=== PATIENT | male | born 1960 | race African-American/Black ===

== ENCOUNTER 2022-08-15 09:26 | Inpatient (IN) | payer MEDICARE, MEDICAID ==
[2022-08-15] VITALS (9 sets, daily range): BP systolic 105–159; BP diastolic 68–96
[~2022-08-15] VITALS: Ht 177.8 cm; Wt 77.0 kg
[2022-08-15] MEDS ORDERED: ALBUTEROL SULFATE 2.5 MG/0.5 ML NEB SOLUTION NEB ONE (09:28)
[2022-08-15] MEDS ORDERED: LIDOCAINE 4% 50 ML SOLUTION TP ONE (09:28)
[2022-08-15] MEDS ORDERED: LIDOCAINE 2% 11 ML JELLY TP ONE (09:28)
[2022-08-15] MEDS ORDERED: SUCCINYLCHOLINE CHLORIDE 20 MG/ML 10 ML VIAL ONE (09:29)
[2022-08-15] MEDS ORDERED: MIDAZOLAM HCL 2 MG/2 ML VIAL ONE (09:31)
[2022-08-15] MEDS ORDERED: SUCCINYLCHOLINE CHLORIDE 20 MG/ML 10 ML VIAL IVP ONE (09:45)
[2022-08-15] MEDS ORDERED: ETOMIDATE 2 MG/ML 10 ML VIAL IVP ONE (09:45)
[2022-08-15] MEDS ORDERED: VECURONIUM BROMIDE 10 MG/VIAL IVP ONE (09:45)
[2022-08-15] MEDS ORDERED: MIDAZOLAM HCL 2 MG/2 ML VIAL IVP ONE (09:45)
[2022-08-15] MEDS ORDERED: IOHEXOL 350 MG/ML 100 ML VIAL ONE (09:46)
[2022-08-15] MEDS ORDERED: SODIUM CHLORIDE 0.9% 100 ML ONE (09:47)
[2022-08-15] MEDS ORDERED: PROPOFOL 1000 MG/ISO-OSM 100 ML IV PRN (10:15)
[2022-08-15 10:25] LABS: BASOPHILS % (AUTO) 0.9 % (0.0-2.0); EOSINOPHILS % (AUTO) 4.5 % (1.0-6.0); HEMATOCRIT 36.5 % (41-53); HEMOGLOBIN 11.6 g/dL (13.5-17.5); LYMPHOCYTES # (AUTO) 1.4 K/uL (1.0-4.8); LYMPHOCYTES % (AUTO) 16.5 % (22.0-44.0); MEAN CORPUSCULAR HEMOGLOBIN 29.5 pg (26.0-34.0); MEAN CORPUSCULAR HGB CONC 31.9 G/dL (31.0-37.0); MEAN CORPUSCULAR VOLUME 92 fL (80-100); MONOCYTES # (AUTO) 0.7 K/uL (0.1-1.0); MONOCYTES % (AUTO) 8.4 % (2.0-9.0); NEUTROPHILS % (AUTO) 69.7 % (40.0-70.0); PLATELET COUNT (AUTO) 523 K/uL (150-450); RED BLOOD CELL COUNT(AUTO) 3.95 MIL/uL (4.50-5.90)
[2022-08-15 10:40] LABS: ALBUMIN 3.1 g/dL (3.4-5.0); BILIRUBIN,TOTAL 0.4 mg/dL (0.1-1.0); CALCIUM, TOTAL 9.2 mg/dL (8.8-10.5); CREATININE 9.98 mg/dL (0.60-1.30); TOTAL PROTEIN, SERUM 7.8 g/dL (6.4-8.2)
[2022-08-15 10:55] LABS: POTASSIUM 6.8 mmol/L (3.5-5.1)
[2022-08-15 11:31] LABS: PROTHROMBIN TIME 62.9 SEC (9.4-11.6)
[2022-08-15 11:41] LABS: INR 6.4 (0.9-1.1)
[2022-08-15 12:30] LABS: ABG BASE EXCESS -3.3 mmol/L (-2.0-3.0); ABG CARBOXYHEMOGLOBIN 0.1 % (0.0-1.5); ABG HCO3 22.3 mmol/L (22.0-26.0); ABG METHEMOGLOBIN 0.2 % (0.0-1.5); ABG OXYGEN CONTENT 21.8 mL/dL (15.0-23.0); ABG OXYGEN SATURATION 99.1 % (95.0-98.0); ABG OXYHEMOGLOBIN 98.8 % (94.0-100.0); ABG PCO2 35 mmHg (35-45); ABG PH 7.409 (7.35-7.450); ABG TOTAL HEMOGLOBIN 15.4 G/dL (12.0-18.0); PO2, ARTERIAL BG 188.8 mmHg (79.0-87.0); SITE, BLOOD GAS RT RADIAL; SOURCE, BLOOD GAS ARTERIAL; TEMPERATURE, FAHRENHEIT, BG 96.3 FAHREN (96.0-98.6)
[2022-08-15 12:31] LABS: O2 DEVICE,BLOOD GAS VENTILATOR (ROOM AIR); PEEP,BG 5 cm H2O; SPONTANEOUS VT, BG 458 ml; VT, ABG 450 ml
[2022-08-15 12:36] LABS: AMPHET/METH SCREEN,URINE NEGATIVE (NEGATIVE); BARBITURATE SCREEN, URINE NEGATIVE (NEGATIVE); BENZODIAZEPINES SCREEN,URINE NEGATIVE (NEGATIVE); CANNABINOID SCREEN,URINE NEGATIVE (NEGATIVE); COCAINE SCREEN,URINE NEGATIVE (NEGATIVE); METHADONE SCREEN, URINE NEGATIVE (NEGATIVE); OPIATE SCREEN,URINE NEGATIVE (NEGATIVE); PHENCYCLIDINE SCREEN,URINE NEGATIVE (NEGATIVE)
[2022-08-15 12:37] LABS: APPEARANCE,URINE HAZY (CLEAR); BILIRUBIN,URINE NEGATIVE (NEGATIVE); GLUCOSE, URINE (UA) NEGATIVE (NEGATIVE); KETONES,URINE NEGATIVE (NEGATIVE); LEUKOCYTE ESTERASE ,URINE MODERATE (NEGATIVE); NITRATE,URINE NEGATIVE (NEGATIVE); OCCULT BLOOD,URINE LARGE (NEGATIVE); PH,URINE 5.5 (5.0-8.0); PROTEIN,URINE 30-70 mg/dL (NEGATIVE); SPECIFIC GRAVITIY, URINE 1.018 (1.003-1.030); UROBILINOGEN,URINE <=1.0 mg/dL (<=1.0)
[2022-08-15 13:38] LABS: BACTERIA,URINE None Seen /HPF (None Seen); RBC,URINE 26-50 /HPF (0-2); SQUAMOUS EPITHELIAL CELL,UR Few /LPF (None Seen)
[2022-08-15] MEDS ORDERED: INSULIN REGULAR, HUMAN 100 UNITS/ML IVP ONE (14:00)
[2022-08-15] MEDS ORDERED: SODIUM BICARBONATE [ADULT] 8.4% 50 MEQ/50 ML SYRINGE IVP ONE (14:00)
[2022-08-15] MEDS ORDERED: SODIUM CHLORIDE 0.9% 1,000 ML IV ONE (14:00)
[2022-08-15] MEDS ORDERED: CALCIUM GLUCONATE 0.465 MEQ/ML 10 ML VIAL IVP ONE (14:00)
[2022-08-15] MEDS ORDERED: DEXTROSE 50%-WATER 25 GM/50 ML SYRINGE IVP ONE (14:00)
[2022-08-15] MEDS: SODIUM CHLORIDE 0.9% 1,000 ML IV SCH ×2 (14:52→15:51)
[2022-08-15 15:06] LABS: GLUCOSE,POINT OF CARE 119 MG/DL (70-110)
[2022-08-15] MEDS: FentaNYL CIT 1000MCG/0.9% NACL 100 ML IV PRN (15:22)
[2022-08-15] MEDS ORDERED: BISACODYL 10 MG RECTAL RECTAL SUPPOSITORY PR PRN (18:00)
[2022-08-15] MEDS ORDERED: CefTRIAXone 1 GM/DEXTROSE 50 ML IV SCH (18:00)
[2022-08-15] MEDS ORDERED: ONDANSETRON HCL 4 MG/2 ML VIAL IVP PRN (18:00)
[2022-08-15 18:03] LABS: CALCIUM, TOTAL 9.7 mg/dL (8.8-10.5); CREATININE 8.29 mg/dL (0.60-1.30); POTASSIUM 4.8 mmol/L (3.5-5.1)
[2022-08-15 18:09] LABS: ALBUMIN 3.3 g/dL (3.4-5.0); BILIRUBIN,TOTAL 0.5 mg/dL (0.1-1.0)
[2022-08-15 18:10] LABS: INR 2.5 (0.9-1.1); PROTHROMBIN TIME 25.8 SEC (9.4-11.6)
[2022-08-15] MEDS ORDERED: SODIUM CHLORIDE 0.45% 1,000 ML IV SCH (18:30)
[2022-08-15] MEDS: SODIUM ZIRCONIUM CYCLOSILICATE 5 GM POWDER PACKET NG SCH (21:06)
[2022-08-16] VITALS (13 sets, daily range): BP systolic 101–157; BP diastolic 51–91
[2022-08-16] MEDS ORDERED: METOPROLOL TARTRATE 5 MG/5 ML VIAL IVP ONE
[2022-08-16] MEDS ORDERED: METOPROLOL TARTRATE 5 MG/5 ML VIAL ONE (00:07)
[2022-08-16] MEDS ORDERED: PROPOFOL 1000 MG/ISO-OSM 100 ML IV PRN (02:00)
[2022-08-16] MEDS: PROPOFOL 1000 MG/ISO-OSM 100 ML IV PRN (02:00)
[2022-08-16] MEDS ORDERED: ACETAMINOPHEN 650 MG/ISO-OSM 65 ML IV ONE (05:30)
[2022-08-16 08:18] LABS: BASOPHILS % (AUTO) 0.7 % (0.0-2.0); EOSINOPHILS % (AUTO) 0.7 % (1.0-6.0); HEMATOCRIT 37.6 % (41-53); HEMOGLOBIN 11.8 g/dL (13.5-17.5); LYMPHOCYTES # (AUTO) 1.1 K/uL (1.0-4.8); LYMPHOCYTES % (AUTO) 5.7 % (22.0-44.0); MEAN CORPUSCULAR HEMOGLOBIN 28.6 pg (26.0-34.0); MEAN CORPUSCULAR HGB CONC 31.3 G/dL (31.0-37.0); MEAN CORPUSCULAR VOLUME 91 fL (80-100); MONOCYTES # (AUTO) 1.3 K/uL (0.1-1.0); MONOCYTES % (AUTO) 6.4 % (2.0-9.0); NEUTROPHILS # (AUTO) 16.9 K/uL (1.8-7.7); PLATELET COUNT (AUTO) 596 K/uL (150-450); RED BLOOD CELL COUNT(AUTO) 4.12 MIL/uL (4.50-5.90); RED CELL DISTRIBUTION WIDTH 15.8 % (11.5-14.5)
[2022-08-16 08:30] LABS: NEUTROPHILS % (AUTO) 86.5 % (40.0-70.0)
[2022-08-16 08:39] LABS: INR 3.4 (0.9-1.1); PROTHROMBIN TIME 34.3 SEC (9.4-11.6)
[2022-08-16] MEDS: PANTOPRAZOLE SODIUM 40 MG/VIAL IVP SCH (08:46)
[2022-08-16] MEDS: SODIUM ZIRCONIUM CYCLOSILICATE 5 GM POWDER PACKET NG SCH ×2 (08:46→15:59)
[2022-08-16 08:50] LABS: CREATININE 6.91 mg/dL (0.60-1.30); MAGNESIUM 2.9 mg/dL (1.80-2.40); POTASSIUM 5.5 mmol/L (3.5-5.1)
[2022-08-16 09:34] LABS: ABG A-A DIFF O2 537.4 mmHg (10-20.0); ABG HCO3 22.5 mmol/L (22.0-26.0); ABG METHEMOGLOBIN 0.3 % (0.0-1.5); ABG OXYGEN CONTENT 16.4 mL/dL (15.0-23.0); ABG OXYGEN SATURATION 93.2 % (95.0-98.0); ABG OXYHEMOGLOBIN 92.9 % (94.0-100.0); ABG PCO2 34 mmHg (35-45); ABG PH 7.422 (7.35-7.450); ABG TOTAL HEMOGLOBIN 12.5 G/dL (12.0-18.0); O2 DEVICE,BLOOD GAS VENTILATOR (ROOM AIR); PO2, ARTERIAL BG 69.3 mmHg (79.0-87.0); SITE, BLOOD GAS RT RADIAL; SOURCE, BLOOD GAS ARTERIAL
[2022-08-16 09:35] LABS: PEEP,BG 5 cm H2O; SPONTANEOUS VT, BG 459 ml; VT, ABG 450 ml
[2022-08-16] MEDS: DEXTROSE 5%-WATER 1,000 ML IV SCH (10:21)
[2022-08-16 10:37] LABS: LACTIC ACID 2.2 mmol/L (0.4-2.0)
[2022-08-16] MEDS: CefTRIAXone SODIUM 2 GM in DEXTROSE 5%-WATER 50 ML IV SCH (11:28)
[2022-08-16] MEDS: DOXYCYCLINE HYCLATE 100 MG in DEXTROSE 5%-WATER 100 ML IV SCH (11:28)
[2022-08-16 12:33] LABS: COVID AG,FIA SOURCE NASAL SWAB
[2022-08-16] MEDS ORDERED: AMIODARONE HCL 150 MG in DEXTROSE 5%-WATER 97 ML IV ONE (12:50)
[2022-08-16 12:51] LABS: GLUCOSE,POINT OF CARE 163 MG/DL (70-110)
[2022-08-16] MEDS ORDERED: AMIODARONE HCL 360 MG in DEXTROSE 5%-WATER 242.8 ML IV ONE (13:00)
[2022-08-16 13:05] LABS: INFLUENZA TYPE A NEGATIVE FOR TYPE A (NEGATIVE); INFLUENZA TYPE B NEGATIVE FOR TYPE B (NEGATIVE)
[2022-08-16 15:24] LABS: CALCIUM, TOTAL 8.8 mg/dL (8.8-10.5); CREATININE 6.2 mg/dL (0.60-1.30); MAGNESIUM 2.8 mg/dL (1.80-2.40); PHOSPHORUS 4.4 mg/dL (2.5-4.9); POTASSIUM 4.7 mmol/L (3.5-5.1)
[2022-08-16] MEDS ORDERED: AMIODARONE HCL 540 MG in DEXTROSE 5%-WATER 239.2 ML IV ONE (19:00)
[2022-08-16 20:47] LABS: ABG BASE EXCESS -7.9 mmol/L (-2.0-3.0); ABG HCO3 18.8 mmol/L (22.0-26.0); ABG METHEMOGLOBIN 0.3 % (0.0-1.5); ABG OXYGEN CONTENT 16.4 mL/dL (15.0-23.0); ABG OXYGEN SATURATION 96.8 % (95.0-98.0); ABG OXYHEMOGLOBIN 96.5 % (94.0-100.0); ABG PCO2 33 mmHg (35-45); ABG PH 7.347 (7.35-7.450); PO2, ARTERIAL BG 92.4 mmHg (79.0-87.0); SOURCE, BLOOD GAS ARTERIAL; TEMPERATURE, FAHRENHEIT, BG 98.3 FAHREN (96.0-98.6)
[2022-08-16 20:52] LABS: ABG A-A DIFF O2 587.9 mmHg (10-20.0); O2 DEVICE,BLOOD GAS VENT (ROOM AIR); SITE, BLOOD GAS RT RADIAL
[2022-08-16 20:53] LABS: PEEP,BG 10 cm H2O; VT, ABG 450 ml
[2022-08-17] VITALS (9 sets, daily range): BP systolic 92–161; BP diastolic 49–83
[2022-08-17] MEDS: DOXYCYCLINE HYCLATE 100 MG in DEXTROSE 5%-WATER 100 ML IV SCH ×2 (00:07→11:18)
[2022-08-17] MEDS: DEXTROSE 5%-WATER 1,000 ML IV SCH ×2 (00:18→14:50)
[2022-08-17] MEDS: PROPOFOL 1000 MG/ISO-OSM 100 ML IV PRN ×3 (01:30→19:41)
[2022-08-17 05:16] LABS: GLUCOSE,POINT OF CARE 159 MG/DL (70-110)
[2022-08-17 05:24] LABS: BASOPHILS % (AUTO) 0.6 % (0.0-2.0); EOSINOPHILS % (AUTO) 0.9 % (1.0-6.0); HEMATOCRIT 32.5 % (41-53); HEMOGLOBIN 10.3 g/dL (13.5-17.5); LYMPHOCYTES # (AUTO) 1.2 K/uL (1.0-4.8); LYMPHOCYTES % (AUTO) 5.3 % (22.0-44.0); MEAN CORPUSCULAR HGB CONC 31.7 G/dL (31.0-37.0); MEAN CORPUSCULAR VOLUME 91 fL (80-100); MONOCYTES # (AUTO) 1.3 K/uL (0.1-1.0); MONOCYTES % (AUTO) 5.4 % (2.0-9.0); NEUTROPHILS # (AUTO) 20.4 K/uL (1.8-7.7); PLATELET COUNT (AUTO) 456 K/uL (150-450); RED BLOOD CELL COUNT(AUTO) 3.55 MIL/uL (4.50-5.90)
[2022-08-17 05:35] LABS: ALBUMIN 2.7 g/dL (3.4-5.0); BILIRUBIN,TOTAL 0.4 mg/dL (0.1-1.0); CALCIUM, TOTAL 8.6 mg/dL (8.8-10.5); CREATININE 5.62 mg/dL (0.60-1.30); POTASSIUM 4.2 mmol/L (3.5-5.1); TOTAL PROTEIN, SERUM 7.3 g/dL (6.4-8.2)
[2022-08-17 05:46] LABS: NEUTROPHILS % (AUTO) 87.8 % (40.0-70.0)
[2022-08-17] MEDS: FentaNYL CIT 1000MCG/0.9% NACL 100 ML IV PRN ×2 (07:56→19:40)
[2022-08-17] MEDS: PANTOPRAZOLE SODIUM 40 MG/VIAL IVP SCH (09:30)
[2022-08-17] MEDS: SODIUM ZIRCONIUM CYCLOSILICATE 5 GM POWDER PACKET NG SCH (09:30)
[2022-08-17] MEDS: CefTRIAXone SODIUM 2 GM in DEXTROSE 5%-WATER 50 ML IV SCH (11:19)
[2022-08-17 12:12] LABS: MAGNESIUM 2.5 mg/dL (1.80-2.40); PHOSPHORUS 4.2 mg/dL (2.5-4.9)
[2022-08-17] MEDS: AMIODARONE HCL 750 MG in DEXTROSE 5%-WATER 485 ML IV SCH (13:08)
[2022-08-17 14:44] LABS: ABG A-A DIFF O2 586.6 mmHg (10-20.0); ABG BASE EXCESS -2.8 mmol/L (-2.0-3.0); ABG CARBOXYHEMOGLOBIN 0.3 % (0.0-1.5); ABG HCO3 22.5 mmol/L (22.0-26.0); ABG METHEMOGLOBIN 0.3 % (0.0-1.5); ABG OXYGEN CONTENT 13.7 mL/dL (15.0-23.0); ABG OXYGEN SATURATION 96.5 % (95.0-98.0); ABG OXYHEMOGLOBIN 95.9 % (94.0-100.0); ABG PCO2 36 mmHg (35-45); ABG PH 7.405 (7.35-7.450); ABG TOTAL HEMOGLOBIN 10.1 G/dL (12.0-18.0); O2 DEVICE,BLOOD GAS VENTILATOR (ROOM AIR); PEEP,BG 10 cm H2O; PO2, ARTERIAL BG 88.6 mmHg (79.0-87.0); SITE, BLOOD GAS RT RADIAL; SOURCE, BLOOD GAS ARTERIAL; VT, ABG 450 ml
[2022-08-18] VITALS (11 sets, daily range): BP systolic 94–116; BP diastolic 51–74
[2022-08-18] MEDS: DOXYCYCLINE HYCLATE 100 MG in DEXTROSE 5%-WATER 100 ML IV SCH ×3 (01:42→22:32)
[2022-08-18] MEDS ORDERED: SODIUM CHLORIDE 0.9% 250 ML IV ONE ×2 (01:45→22:30)
[2022-08-18 05:43] LABS: BASOPHILS % (AUTO) 0.3 % (0.0-2.0); EOSINOPHILS % (AUTO) 4.9 % (1.0-6.0); HEMATOCRIT 24.5 % (41-53); HEMOGLOBIN 7.3 g/dL (13.5-17.5); LYMPHOCYTES # (AUTO) 0.9 K/uL (1.0-4.8); LYMPHOCYTES % (AUTO) 5.6 % (22.0-44.0); MEAN CORPUSCULAR HEMOGLOBIN 29.2 pg (26.0-34.0); MEAN CORPUSCULAR HGB CONC 29.8 G/dL (31.0-37.0); MEAN CORPUSCULAR VOLUME 98 fL (80-100); MONOCYTES % (AUTO) 6.5 % (2.0-9.0); NEUTROPHILS # (AUTO) 13.1 K/uL (1.8-7.7); NEUTROPHILS % (AUTO) 82.7 % (40.0-70.0); PLATELET COUNT (AUTO) 275 K/uL (150-450); RED BLOOD CELL COUNT(AUTO) 2.49 MIL/uL (4.50-5.90); RED CELL DISTRIBUTION WIDTH 17.6 % (11.5-14.5)
[2022-08-18 06:14] LABS: CALCIUM, TOTAL 6.8 mg/dL (8.8-10.5); CREATININE 4.78 mg/dL (0.60-1.30); POTASSIUM 3.4 mmol/L (3.5-5.1)
[2022-08-18] MEDS: DEXTROSE 5%-WATER 1,000 ML IV SCH ×2 (06:37→19:41)
[2022-08-18] MEDS: PANTOPRAZOLE SODIUM 40 MG/VIAL IVP SCH (07:54)
[2022-08-18 09:37] LABS: CALCIUM, TOTAL 8.4 mg/dL (8.8-10.5); CREATININE 5.03 mg/dL (0.60-1.30); POTASSIUM 4.2 mmol/L (3.5-5.1)
[2022-08-18 10:48] LABS: ABG A-A DIFF O2 163.6 mmHg (10-20.0); ABG BASE EXCESS -3.1 mmol/L (-2.0-3.0); ABG CARBOXYHEMOGLOBIN 0.5 % (0.0-1.5); ABG HCO3 22.3 mmol/L (22.0-26.0); ABG METHEMOGLOBIN 0.3 % (0.0-1.5); ABG OXYGEN CONTENT 12.2 mL/dL (15.0-23.0); ABG OXYGEN SATURATION 96.3 % (95.0-98.0); ABG OXYHEMOGLOBIN 95.5 % (94.0-100.0); ABG PCO2 33 mmHg (35-45); ABG PH 7.426 (7.35-7.450); O2 DEVICE,BLOOD GAS VENTILATOR (ROOM AIR); PO2, ARTERIAL BG 83.2 mmHg (79.0-87.0); SITE, BLOOD GAS RT RADIAL; SOURCE, BLOOD GAS ARTERIAL; TEMPERATURE, FAHRENHEIT, BG 99.1 FAHREN (96.0-98.6); VT, ABG 450 ml
[2022-08-18 10:49] LABS: PEEP,BG 5 cm H2O
[2022-08-18] MEDS: CefTRIAXone SODIUM 2 GM in DEXTROSE 5%-WATER 50 ML IV SCH (12:26)
[2022-08-18] MEDS: AMIODARONE HCL 750 MG in DEXTROSE 5%-WATER 485 ML IV SCH (13:00)
[2022-08-18 13:10] LABS: HEMATOCRIT 26.6 % (41-53); HEMOGLOBIN 8.4 g/dL (13.5-17.5)
[2022-08-18] MEDS ORDERED: PHYTONADIONE 10 MG/1 ML AMP SQ ONE (13:45)
[2022-08-18] MEDS ORDERED: SUCCINYLCHOLINE CHLORIDE 20 MG/ML 10 ML VIAL IM ONE (14:47)
[2022-08-18] MEDS ORDERED: ETOMIDATE 2 MG/ML 10 ML VIAL IV ONE (14:47)
[2022-08-18] MEDS ORDERED: VECURONIUM BROMIDE 10 MG/VIAL IV ONE (14:47)
[2022-08-18] MEDS: MetroNIDAZOLE 500 MG TABLET PO SCH (18:40)
[2022-08-18 20:23] LABS: HEMATOCRIT 26.7 % (41-53); HEMOGLOBIN 8.4 g/dL (13.5-17.5)
[2022-08-18] MEDS: FentaNYL CIT 1000MCG/0.9% NACL 100 ML IV PRN (22:32)
[2022-08-19] VITALS (8 sets, daily range): BP systolic 109–152; BP diastolic 61–85
[2022-08-19] MEDS: MetroNIDAZOLE 500 MG TABLET PO SCH ×3 (00:34→16:30)
[2022-08-19] MEDS ORDERED: LORazepam 2 MG/ML VIAL ONE (04:48)
[2022-08-19] MEDS ORDERED: LORazepam 2 MG/ML VIAL IVP ONE (05:00)
[2022-08-19 05:05] LABS: BASOPHILS % (AUTO) 0.3 % (0.0-2.0); EOSINOPHILS % (AUTO) 4.3 % (1.0-6.0); HEMATOCRIT 28.3 % (41-53); HEMOGLOBIN 9.1 g/dL (13.5-17.5); LYMPHOCYTES # (AUTO) 0.9 K/uL (1.0-4.8); LYMPHOCYTES % (AUTO) 6.2 % (22.0-44.0); MEAN CORPUSCULAR HEMOGLOBIN 29.1 pg (26.0-34.0); MEAN CORPUSCULAR HGB CONC 32.1 G/dL (31.0-37.0); MEAN CORPUSCULAR VOLUME 90 fL (80-100); MONOCYTES # (AUTO) 0.8 K/uL (0.1-1.0); MONOCYTES % (AUTO) 5.2 % (2.0-9.0); NEUTROPHILS # (AUTO) 12.6 K/uL (1.8-7.7); PLATELET COUNT (AUTO) 393 K/uL (150-450); RED BLOOD CELL COUNT(AUTO) 3.13 MIL/uL (4.50-5.90); RED CELL DISTRIBUTION WIDTH 15.8 % (11.5-14.5)
[2022-08-19] MEDS: IPRATROPIUM BROMIDE 0.5 MG/2.5 ML NEB SOLUTION NEB PRN (05:05)
[2022-08-19] MEDS: ALBUTEROL SULFATE 2.5 MG/0.5 ML NEB SOLUTION NEB PRN (05:05)
[2022-08-19 05:27] LABS: INR 3.9 (0.9-1.1); PROTHROMBIN TIME 39.2 SEC (9.4-11.6)
[2022-08-19 05:32] LABS: ALBUMIN 2.2 g/dL (3.4-5.0); BILIRUBIN,TOTAL 0.5 mg/dL (0.1-1.0); CALCIUM, TOTAL 8.7 mg/dL (8.8-10.5); CREATININE 3.41 mg/dL (0.60-1.30); POTASSIUM 3.4 mmol/L (3.5-5.1); TOTAL PROTEIN, SERUM 7.1 g/dL (6.4-8.2)
[2022-08-19 05:50] LABS: GLUCOSE,POINT OF CARE 128 MG/DL (70-110)
[2022-08-19] MEDS: PANTOPRAZOLE SODIUM 40 MG/VIAL IVP SCH (08:03)
[2022-08-19 10:00] LABS: INR 3.5 (0.9-1.1); PROTHROMBIN TIME 35.2 SEC (9.4-11.6)
[2022-08-19] MEDS: DOXYCYCLINE HYCLATE 100 MG in DEXTROSE 5%-WATER 100 ML IV SCH ×2 (10:13→21:31)
[2022-08-19] MEDS: DEXTROSE 5%-WATER 1,000 ML IV SCH ×2 (10:13→19:44)
[2022-08-19] MEDS: POTASSIUM CHL 10 MEQ/WATER 50 ML IV SCH ×4 (10:55→14:49)
[2022-08-19] MEDS: CefTRIAXone SODIUM 2 GM in DEXTROSE 5%-WATER 50 ML IV SCH (12:16)
[2022-08-19] MEDS: AMIODARONE HCL 750 MG in DEXTROSE 5%-WATER 485 ML IV SCH (13:34)
[2022-08-19 15:15] LABS: ABG BASE EXCESS -2.7 mmol/L (-2.0-3.0); ABG CARBOXYHEMOGLOBIN 0.3 % (0.0-1.5); ABG HCO3 22.7 mmol/L (22.0-26.0); ABG METHEMOGLOBIN 0.3 % (0.0-1.5); ABG OXYGEN CONTENT 12.6 mL/dL (15.0-23.0); ABG OXYHEMOGLOBIN 95.4 % (94.0-100.0); ABG PCO2 31 mmHg (35-45); ABG PH 7.458 (7.35-7.450); ABG TOTAL HEMOGLOBIN 9.3 G/dL (12.0-18.0); PO2, ARTERIAL BG 77.9 mmHg (79.0-87.0); SOURCE, BLOOD GAS ARTERIAL; TEMPERATURE, FAHRENHEIT, BG 97.8 FAHREN (96.0-98.6)
[2022-08-19 15:16] LABS: ABG A-A DIFF O2 533.3 mmHg (10-20.0); O2 DEVICE,BLOOD GAS VENTILATOR (ROOM AIR); PEEP,BG 10 cm H2O; SITE, BLOOD GAS RT RADIAL; SPONTANEOUS VT, BG 452 ml; VT, ABG 450 ml
[2022-08-19 16:30] LABS: HEMATOCRIT 23.5 % (41-53); HEMOGLOBIN 7.2 g/dL (13.5-17.5)
[2022-08-19 21:18] LABS: HEMATOCRIT 28.2 % (41-53)
[2022-08-20] VITALS (9 sets, daily range): BP systolic 116–147; BP diastolic 65–87
[2022-08-20] MEDS ORDERED: ACETAMINOPHEN 325 MG TABLET PO ONE (02:00)
[2022-08-20] MEDS: MetroNIDAZOLE 500 MG TABLET PO SCH ×3 (02:20→17:00)
[2022-08-20 02:59] LABS: APPEARANCE,URINE TURBID (CLEAR); BILIRUBIN,URINE NEGATIVE (NEGATIVE); GLUCOSE, URINE (UA) NEGATIVE (NEGATIVE); KETONES,URINE NEGATIVE (NEGATIVE); LEUKOCYTE ESTERASE ,URINE MODERATE (NEGATIVE); NITRATE,URINE NEGATIVE (NEGATIVE); OCCULT BLOOD,URINE LARGE (NEGATIVE); PROTEIN,URINE 30-70 mg/dL (NEGATIVE); SPECIFIC GRAVITIY, URINE 1.009 (1.003-1.030); UROBILINOGEN,URINE <=1.0 mg/dL (<=1.0)
[2022-08-20 03:11] LABS: BACTERIA,URINE Few /HPF (None Seen); SQUAMOUS EPITHELIAL CELL,UR None Seen /LPF (None Seen)
[2022-08-20 06:09] LABS: BASOPHILS % (AUTO) 0.6 % (0.0-2.0); EOSINOPHILS % (AUTO) 5.8 % (1.0-6.0); HEMATOCRIT 28.4 % (41-53); LYMPHOCYTES # (AUTO) 0.8 K/uL (1.0-4.8); LYMPHOCYTES % (AUTO) 5.4 % (22.0-44.0); MEAN CORPUSCULAR HEMOGLOBIN 28.6 pg (26.0-34.0); MEAN CORPUSCULAR HGB CONC 31.9 G/dL (31.0-37.0); MEAN CORPUSCULAR VOLUME 90 fL (80-100); MONOCYTES # (AUTO) 1.4 K/uL (0.1-1.0); MONOCYTES % (AUTO) 9.7 % (2.0-9.0); NEUTROPHILS % (AUTO) 78.5 % (40.0-70.0); PLATELET COUNT (AUTO) 407 K/uL (150-450); RED BLOOD CELL COUNT(AUTO) 3.16 MIL/uL (4.50-5.90); RED CELL DISTRIBUTION WIDTH 15.5 % (11.5-14.5)
[2022-08-20 06:23] LABS: ALBUMIN 2.1 g/dL (3.4-5.0); BILIRUBIN,TOTAL 0.4 mg/dL (0.1-1.0); CALCIUM, TOTAL 8.7 mg/dL (8.8-10.5); CREATININE 2.52 mg/dL (0.60-1.30); INR 2.9 (0.9-1.1); POTASSIUM 3.8 mmol/L (3.5-5.1); TOTAL PROTEIN, SERUM 7.3 g/dL (6.4-8.2)
[2022-08-20] MEDS: DEXTROSE 5%-WATER 1,000 ML IV SCH ×2 (07:31→15:44)
[2022-08-20] MEDS: PANTOPRAZOLE SODIUM 40 MG/VIAL IVP SCH (07:54)
[2022-08-20] MEDS: DOXYCYCLINE HYCLATE 100 MG in DEXTROSE 5%-WATER 100 ML IV SCH ×2 (11:03→23:22)
[2022-08-20] MEDS: CefTRIAXone SODIUM 2 GM in DEXTROSE 5%-WATER 50 ML IV SCH (12:24)
[2022-08-20] MEDS: AMIODARONE HCL 750 MG in DEXTROSE 5%-WATER 485 ML IV SCH (13:10)
[2022-08-20 13:32] LABS: HEMATOCRIT 27.8 % (41-53); HEMOGLOBIN 8.9 g/dL (13.5-17.5)
[2022-08-20 16:24] LABS: HEMATOCRIT 30.3 % (41-53); HEMOGLOBIN 9.5 g/dL (13.5-17.5)
[2022-08-20] MEDS: ACETAMINOPHEN 325 MG TABLET PO PRN (17:38)
[2022-08-21] VITALS (16 sets, daily range): BP systolic 94–147; BP diastolic 53–86
[2022-08-21] MEDS: MetroNIDAZOLE 500 MG TABLET PO SCH ×4 (00:14→23:42)
[2022-08-21] MEDS: ACETAMINOPHEN 325 MG TABLET PO PRN ×2 (00:14→20:19)
[2022-08-21 05:53] LABS: BILIRUBIN,TOTAL 0.4 mg/dL (0.1-1.0); CREATININE 2.3 mg/dL (0.60-1.30); POTASSIUM 3.3 mmol/L (3.5-5.1); TOTAL PROTEIN, SERUM 7.2 g/dL (6.4-8.2)
[2022-08-21] MEDS: PANTOPRAZOLE SODIUM 40 MG/VIAL IVP SCH (08:27)
[2022-08-21 09:44] LABS: BASOPHILS % (AUTO) 0.6 % (0.0-2.0); HEMATOCRIT 29.2 % (41-53); HEMOGLOBIN 9.3 g/dL (13.5-17.5); LYMPHOCYTES % (AUTO) 6.7 % (22.0-44.0); MEAN CORPUSCULAR HEMOGLOBIN 28.6 pg (26.0-34.0); MEAN CORPUSCULAR HGB CONC 31.7 G/dL (31.0-37.0); MEAN CORPUSCULAR VOLUME 90 fL (80-100); MONOCYTES # (AUTO) 2.1 K/uL (0.1-1.0); MONOCYTES % (AUTO) 14.6 % (2.0-9.0); NEUTROPHILS # (AUTO) 10.2 K/uL (1.8-7.7); NEUTROPHILS % (AUTO) 72.1 % (40.0-70.0); PLATELET COUNT (AUTO) 329 K/uL (150-450); RED BLOOD CELL COUNT(AUTO) 3.24 MIL/uL (4.50-5.90); RED CELL DISTRIBUTION WIDTH 15.7 % (11.5-14.5)
[2022-08-21 09:50] LABS: INR 1.8 (0.9-1.1); PROTHROMBIN TIME 18.3 SEC (9.4-11.6)
[2022-08-21] MEDS: DEXTROSE 5%-WATER 1,000 ML IV SCH ×2 (11:12→23:42)
[2022-08-21] MEDS: DOXYCYCLINE HYCLATE 100 MG in DEXTROSE 5%-WATER 100 ML IV SCH ×2 (11:13→23:08)
[2022-08-21] MEDS ORDERED: IODIXANOL 320 MG/ML 50 ML VIAL ONE (12:04)
[2022-08-21] MEDS ORDERED: LIDOCAINE/PF 1% 30 ML VIAL ONE (12:04)
[2022-08-21] MEDS ORDERED: SODIUM BICARBONATE 50 MEQ/50 ML VIAL ONE (12:04)
[2022-08-21] MEDS ORDERED: HEPARIN SODIUM 1000 UNITS/NS 1,000 ML ONE (12:07)
[2022-08-21] MEDS ORDERED: IODIXANOL 320 MG/ML 50 ML VIAL IVP ONE (12:45)
[2022-08-21] MEDS ORDERED: LIDOCAINE 1% 30 ML/SOD BICARB 8.4% 4 ML SQ ONE (12:45)
[2022-08-21] MEDS ORDERED: SODIUM CHLORIDE 0.9% 500 ML IV ONE (12:45)
[2022-08-21] MEDS ORDERED: IODIXANOL 320 MG/ML 100 ML VIAL IVP ONE (12:45)
[2022-08-21] MEDS ORDERED: IODIXANOL 320 MG/ML 100 ML VIAL ONE (12:46)
[2022-08-21] MEDS ORDERED: HEPARIN SODIUM 1000 UNITS/NS 1,000 ML IARTER ONE (13:30)
[2022-08-21] MEDS: AMIODARONE HCL 750 MG in DEXTROSE 5%-WATER 485 ML IV SCH (14:06)
[2022-08-21] MEDS: CefTRIAXone SODIUM 2 GM in DEXTROSE 5%-WATER 50 ML IV SCH (14:06)
[2022-08-21] MEDS: POTASSIUM CHL 10 MEQ/WATER 50 ML IV SCH ×4 (15:40→17:32)
[2022-08-21 16:49] LABS: HEMATOCRIT 25.3 % (41-53); HEMOGLOBIN 8.2 g/dL (13.5-17.5)
[2022-08-21] MEDS ORDERED: SODIUM CHLORIDE 0.9% 250 ML IV ONE (20:18)
[2022-08-21 20:51] LABS: HEMOGLOBIN 8.7 g/dL (13.5-17.5)
[2022-08-22] VITALS (12 sets, daily range): BP systolic 91–133; BP diastolic 51–75
[2022-08-22] MEDS: FentaNYL CIT 1000MCG/0.9% NACL 100 ML IV PRN ×2 (04:13→18:05)
[2022-08-22 06:10] LABS: BASOPHILS % (AUTO) 0.6 % (0.0-2.0); HEMATOCRIT 24.9 % (41-53); HEMOGLOBIN 8.1 g/dL (13.5-17.5); LYMPHOCYTES % (AUTO) 8.5 % (22.0-44.0); MEAN CORPUSCULAR HEMOGLOBIN 28.7 pg (26.0-34.0); MEAN CORPUSCULAR HGB CONC 32.4 G/dL (31.0-37.0); MEAN CORPUSCULAR VOLUME 89 fL (80-100); MONOCYTES # (AUTO) 1.5 K/uL (0.1-1.0); MONOCYTES % (AUTO) 12.2 % (2.0-9.0); NEUTROPHILS # (AUTO) 8.8 K/uL (1.8-7.7); NEUTROPHILS % (AUTO) 72.7 % (40.0-70.0); PLATELET COUNT (AUTO) 320 K/uL (150-450); RED CELL DISTRIBUTION WIDTH 15.6 % (11.5-14.5)
[2022-08-22 06:11] LABS: ALBUMIN 1.8 g/dL (3.4-5.0); BILIRUBIN,TOTAL 0.3 mg/dL (0.1-1.0); CALCIUM, TOTAL 8.5 mg/dL (8.8-10.5); CREATININE 2.08 mg/dL (0.60-1.30); PHOSPHORUS 2.8 mg/dL (2.5-4.9); POTASSIUM 3.2 mmol/L (3.5-5.1); TOTAL PROTEIN, SERUM 6.5 g/dL (6.4-8.2)
[2022-08-22] MEDS: POTASSIUM CHL 10 MEQ/WATER 50 ML IV SCH ×4 (08:01→10:57)
[2022-08-22] MEDS: PANTOPRAZOLE SODIUM 40 MG/VIAL IVP SCH (08:01)
[2022-08-22] MEDS: MetroNIDAZOLE 500 MG TABLET PO SCH ×2 (08:01→17:22)
[2022-08-22 08:37] LABS: INR 1.7 (0.9-1.1); PROTHROMBIN TIME 17.3 SEC (9.4-11.6)
[2022-08-22] MEDS: CefTRIAXone SODIUM 2 GM in DEXTROSE 5%-WATER 50 ML IV SCH (11:31)
[2022-08-22] MEDS: DOXYCYCLINE HYCLATE 100 MG in DEXTROSE 5%-WATER 100 ML IV SCH (11:31)
[2022-08-22] MEDS: DEXTROSE 5%-WATER 1,000 ML IV SCH (13:17)
[2022-08-22] MEDS: METOCLOPRAMIDE HCL 5 MG/ML 2 ML VIAL IVP SCH ×2 (17:22→20:37)
[2022-08-22] MEDS: AMIODARONE HCL 200 MG TABLET PO SCH (20:37)
[2022-08-23] VITALS (12 sets, daily range): BP systolic 100–135; BP diastolic 50–77
[2022-08-23] MEDS ORDERED: SODIUM CHLORIDE 0.9% 250 ML IV ONE (00:11)
[2022-08-23] MEDS: DOXYCYCLINE HYCLATE 100 MG in DEXTROSE 5%-WATER 100 ML IV SCH ×2 (00:13→11:04)
[2022-08-23] MEDS: MetroNIDAZOLE 500 MG TABLET PO SCH ×4 (00:13→23:12)
[2022-08-23] MEDS: DEXTROSE 5%-WATER 1,000 ML IV SCH ×2 (02:07→16:27)
[2022-08-23 05:57] LABS: BASOPHILS % (AUTO) 0.8 % (0.0-2.0); EOSINOPHILS % (AUTO) 5.5 % (1.0-6.0); HEMATOCRIT 25.2 % (41-53); HEMOGLOBIN 8.3 g/dL (13.5-17.5); LYMPHOCYTES % (AUTO) 9.1 % (22.0-44.0); MEAN CORPUSCULAR HEMOGLOBIN 29.4 pg (26.0-34.0); MEAN CORPUSCULAR HGB CONC 33.1 G/dL (31.0-37.0); MEAN CORPUSCULAR VOLUME 89 fL (80-100); MONOCYTES % (AUTO) 8.9 % (2.0-9.0); NEUTROPHILS # (AUTO) 8.4 K/uL (1.8-7.7); NEUTROPHILS % (AUTO) 75.7 % (40.0-70.0); PLATELET COUNT (AUTO) 323 K/uL (150-450); RED BLOOD CELL COUNT(AUTO) 2.83 MIL/uL (4.50-5.90); RED CELL DISTRIBUTION WIDTH 15.8 % (11.5-14.5)
[2022-08-23] MEDS: FentaNYL CIT 1000MCG/0.9% NACL 100 ML IV PRN ×2 (06:04→19:45)
[2022-08-23 06:17] LABS: ALBUMIN 1.8 g/dL (3.4-5.0); BILIRUBIN,TOTAL 0.3 mg/dL (0.1-1.0); CALCIUM, TOTAL 8.7 mg/dL (8.8-10.5); CREATININE 2.04 mg/dL (0.60-1.30); MAGNESIUM 1.8 mg/dL (1.80-2.40); PHOSPHORUS 3.2 mg/dL (2.5-4.9); POTASSIUM 3.5 mmol/L (3.5-5.1); TOTAL PROTEIN, SERUM 6.4 g/dL (6.4-8.2)
[2022-08-23] MEDS: METOCLOPRAMIDE HCL 5 MG/ML 2 ML VIAL IVP SCH ×3 (08:17→20:28)
[2022-08-23] MEDS: PANTOPRAZOLE SODIUM 40 MG/VIAL IVP SCH (08:18)
[2022-08-23] MEDS: AMIODARONE HCL 200 MG TABLET PO SCH ×2 (08:18→20:28)
[2022-08-23] MEDS: CefTRIAXone SODIUM 2 GM in DEXTROSE 5%-WATER 50 ML IV SCH (12:04)
[2022-08-23 12:35] LABS: INR 1.7 (0.9-1.1); PROTHROMBIN TIME 17.6 SEC (9.4-11.6)
[2022-08-23] MEDS: POTASSIUM CHL 10 MEQ/WATER 50 ML IV SCH ×2 (13:37→15:08)
[2022-08-23] MEDS ORDERED: PHENYLEPHRINE 200 MG/D5%-WATER 250 ML IV PRN (22:45)
[2022-08-24] VITALS (9 sets, daily range): BP systolic 89–131; BP diastolic 41–85
[2022-08-24] MEDS: PROPOFOL 1000 MG/ISO-OSM 100 ML IV PRN ×2 (03:39→21:00)
[2022-08-24] MEDS ORDERED: SODIUM CHLORIDE 0.9% 250 ML IV ONE (04:47)
[2022-08-24] MEDS: DEXTROSE 5%-WATER 1,000 ML IV SCH ×2 (04:50→23:54)
[2022-08-24 06:14] LABS: BASOPHILS % (AUTO) 0.6 % (0.0-2.0); EOSINOPHILS % (AUTO) 3.7 % (1.0-6.0); HEMATOCRIT 25.2 % (41-53); HEMOGLOBIN 8.1 g/dL (13.5-17.5); LYMPHOCYTES # (AUTO) 1.4 K/uL (1.0-4.8); LYMPHOCYTES % (AUTO) 11.7 % (22.0-44.0); MEAN CORPUSCULAR HEMOGLOBIN 28.9 pg (26.0-34.0); MEAN CORPUSCULAR HGB CONC 32.2 G/dL (31.0-37.0); MEAN CORPUSCULAR VOLUME 90 fL (80-100); MONOCYTES % (AUTO) 8.2 % (2.0-9.0); NEUTROPHILS % (AUTO) 75.8 % (40.0-70.0); PLATELET COUNT (AUTO) 319 K/uL (150-450); RED BLOOD CELL COUNT(AUTO) 2.81 MIL/uL (4.50-5.90); RED CELL DISTRIBUTION WIDTH 15.3 % (11.5-14.5)
[2022-08-24 06:32] LABS: CALCIUM, TOTAL 8.3 mg/dL (8.8-10.5); CREATININE 2.06 mg/dL (0.60-1.30); MAGNESIUM 1.8 mg/dL (1.80-2.40); PHOSPHORUS 3.6 mg/dL (2.5-4.9); POTASSIUM 3.3 mmol/L (3.5-5.1)
[2022-08-24] MEDS: AMIODARONE HCL 200 MG TABLET PO SCH ×2 (08:17→20:58)
[2022-08-24] MEDS: PANTOPRAZOLE SODIUM 40 MG/VIAL IVP SCH (08:17)
[2022-08-24] MEDS: METOCLOPRAMIDE HCL 5 MG/ML 2 ML VIAL IVP SCH ×3 (08:17→20:58)
[2022-08-24] MEDS: MetroNIDAZOLE 500 MG TABLET PO SCH ×2 (08:17→15:33)
[2022-08-24] MEDS: FentaNYL CIT 1000MCG/0.9% NACL 100 ML IV PRN ×2 (08:26→21:01)
[2022-08-24 10:39] LABS: INR 1.7 (0.9-1.1)
[2022-08-24] MEDS: CefTRIAXone SODIUM 2 GM in DEXTROSE 5%-WATER 50 ML IV SCH (11:24)
[2022-08-24] MEDS ORDERED: POTASSIUM CHL 10 MEQ/WATER 50 ML IV ONE (13:30)
[2022-08-24] MEDS: ALBUTEROL SULFATE 2.5 MG/0.5 ML NEB SOLUTION NEB PRN (19:15)
[2022-08-24] MEDS: ACETYLCYSTEINE 10% 100 MG/ML 4 ML NEB SOLUTION NEB SCH (19:15)
[2022-08-24] MEDS: IPRATROPIUM BROMIDE 0.5 MG/2.5 ML NEB SOLUTION NEB PRN (19:15)
[2022-08-25] VITALS: BP 96/52
[2022-08-25] MEDS: MetroNIDAZOLE 500 MG TABLET PO SCH ×4 (00:04→23:21)
[2022-08-25] MEDS: ACETYLCYSTEINE 10% 100 MG/ML 4 ML NEB SOLUTION NEB SCH ×4 (01:35→19:05)
[2022-08-25] MEDS: ALBUTEROL SULFATE 2.5 MG/0.5 ML NEB SOLUTION NEB PRN ×4 (01:35→19:05)
[2022-08-25] MEDS: IPRATROPIUM BROMIDE 0.5 MG/2.5 ML NEB SOLUTION NEB PRN (01:35)
[2022-08-25 04:00] VITALS: BP 106/51
[2022-08-25] MEDS: PROPOFOL 1000 MG/ISO-OSM 100 ML IV PRN (05:08)
[2022-08-25] MEDS ORDERED: SODIUM CHLORIDE 0.9% 250 ML IV ONE ×2 (06:02→23:19)
[2022-08-25 06:58] LABS: CALCIUM, TOTAL 8.7 mg/dL (8.8-10.5); CREATININE 2.26 mg/dL (0.60-1.30); MAGNESIUM 1.9 mg/dL (1.80-2.40); PHOSPHORUS 3.9 mg/dL (2.5-4.9); POTASSIUM 3.4 mmol/L (3.5-5.1)
[2022-08-25 07:28] LABS: BASOPHILS % (AUTO) 0.6 % (0.0-2.0); EOSINOPHILS % (AUTO) 3.2 % (1.0-6.0); HEMATOCRIT 26.4 % (41-53); HEMOGLOBIN 8.4 g/dL (13.5-17.5); LYMPHOCYTES # (AUTO) 1.3 K/uL (1.0-4.8); LYMPHOCYTES % (AUTO) 10.7 % (22.0-44.0); MEAN CORPUSCULAR HEMOGLOBIN 28.6 pg (26.0-34.0); MEAN CORPUSCULAR HGB CONC 31.9 G/dL (31.0-37.0); MEAN CORPUSCULAR VOLUME 90 fL (80-100); MONOCYTES # (AUTO) 0.8 K/uL (0.1-1.0); MONOCYTES % (AUTO) 6.3 % (2.0-9.0); NEUTROPHILS # (AUTO) 9.7 K/uL (1.8-7.7); NEUTROPHILS % (AUTO) 79.2 % (40.0-70.0); PLATELET COUNT (AUTO) 331 K/uL (150-450); RED BLOOD CELL COUNT(AUTO) 2.94 MIL/uL (4.50-5.90); RED CELL DISTRIBUTION WIDTH 15.6 % (11.5-14.5)
[2022-08-25 08:00] VITALS: BP 135/65
[2022-08-25] MEDS: AMIODARONE HCL 200 MG TABLET PO SCH ×2 (08:01→20:50)
[2022-08-25] MEDS: METOCLOPRAMIDE HCL 5 MG/ML 2 ML VIAL IVP SCH (08:01)
[2022-08-25] MEDS: PANTOPRAZOLE SODIUM 40 MG/VIAL IVP SCH (08:02)
[2022-08-25 08:47] LABS: INR 1.6 (0.9-1.1); PROTHROMBIN TIME 16.3 SEC (9.4-11.6)
[2022-08-25] MEDS: FentaNYL CIT 1000MCG/0.9% NACL 100 ML IV PRN ×3 (10:45→23:21)
[2022-08-25] MEDS: CefTRIAXone SODIUM 2 GM in DEXTROSE 5%-WATER 50 ML IV SCH (11:08)
[2022-08-25] MEDS ORDERED: POTASSIUM CHL 10 MEQ/WATER 50 ML IV ONE (11:30)
[2022-08-25 12:00] VITALS: BP 130/80
[2022-08-25 15:06] LABS: S PNEUMO SOURCE Urine; STREP PNEUMONIAE AG URINE Negative (Negative)
[2022-08-25 16:00] VITALS: BP 114/61
[2022-08-25 16:06] LABS: LEGIONELLA PNEUMO AG URINE Negative (Negative)
[2022-08-25] MEDS: DEXTROSE 5%-WATER 1,000 ML IV SCH (19:05)
[2022-08-25 20:00] VITALS: BP 126/71
[2022-08-26] VITALS: BP 130/69
[2022-08-26] MEDS: ALBUTEROL SULFATE 2.5 MG/0.5 ML NEB SOLUTION NEB PRN ×3 (01:20→19:09)
[2022-08-26] MEDS: ACETYLCYSTEINE 10% 100 MG/ML 4 ML NEB SOLUTION NEB SCH ×4 (01:20→19:09)
[2022-08-26 01:40] LABS: C.DIFF GDH ANTIGEN, Stool Negative (Negative); C.DIFF TOXINS A&B, Stool Negative (Negative)
[2022-08-26 04:00] VITALS: BP 134/62
[2022-08-26 05:55] LABS: BASOPHILS % (AUTO) 0.3 % (0.0-2.0); HEMATOCRIT 24.4 % (41-53); HEMOGLOBIN 7.9 g/dL (13.5-17.5); LYMPHOCYTES # (AUTO) 0.8 K/uL (1.0-4.8); LYMPHOCYTES % (AUTO) 5.3 % (22.0-44.0); MEAN CORPUSCULAR HEMOGLOBIN 28.8 pg (26.0-34.0); MEAN CORPUSCULAR HGB CONC 32.6 G/dL (31.0-37.0); MEAN CORPUSCULAR VOLUME 89 fL (80-100); MONOCYTES # (AUTO) 0.8 K/uL (0.1-1.0); MONOCYTES % (AUTO) 5.3 % (2.0-9.0); NEUTROPHILS # (AUTO) 12.3 K/uL (1.8-7.7); PLATELET COUNT (AUTO) 300 K/uL (150-450); RED BLOOD CELL COUNT(AUTO) 2.75 MIL/uL (4.50-5.90); RED CELL DISTRIBUTION WIDTH 15.9 % (11.5-14.5)
[2022-08-26 06:07] LABS: CALCIUM, TOTAL 8.4 mg/dL (8.8-10.5); CREATININE 2.03 mg/dL (0.60-1.30); MAGNESIUM 1.8 mg/dL (1.80-2.40); PHOSPHORUS 4.7 mg/dL (2.5-4.9); POTASSIUM 3.4 mmol/L (3.5-5.1)
[2022-08-26 06:13] LABS: NEUTROPHILS % (AUTO) 87.1 % (40.0-70.0)
[2022-08-26 08:00] VITALS: BP 143/73
[2022-08-26] MEDS: AMIODARONE HCL 200 MG TABLET PO SCH ×2 (08:07→20:26)
[2022-08-26] MEDS: MetroNIDAZOLE 500 MG TABLET PO SCH ×3 (08:07→23:54)
[2022-08-26] MEDS: PANTOPRAZOLE SODIUM 40 MG/VIAL IVP SCH (08:07)
[2022-08-26] MEDS: FentaNYL CIT 1000MCG/0.9% NACL 100 ML IV PRN (08:14)
[2022-08-26] MEDS: POTASSIUM CHL 10 MEQ/WATER 50 ML IV SCH ×2 (09:45→11:26)
[2022-08-26 12:00] VITALS: BP 142/65
[2022-08-26] MEDS: CefTRIAXone SODIUM 2 GM in DEXTROSE 5%-WATER 50 ML IV SCH (12:21)
[2022-08-26 12:51] LABS: ABG BASE EXCESS -5.7 mmol/L (-2.0-3.0); ABG CARBOXYHEMOGLOBIN 0.5 % (0.0-1.5); ABG HCO3 20.5 mmol/L (22.0-26.0); ABG METHEMOGLOBIN 0.3 % (0.0-1.5); ABG OXYGEN CONTENT 16.1 mL/dL (15.0-23.0); ABG OXYGEN SATURATION 96.3 % (95.0-98.0); ABG OXYHEMOGLOBIN 95.5 % (94.0-100.0); ABG PCO2 29 mmHg (35-45); ABG PH 7.423 (7.35-7.450); ABG TOTAL HEMOGLOBIN 11.9 G/dL (12.0-18.0); PO2, ARTERIAL BG 73.4 mmHg (79.0-87.0); SITE, BLOOD GAS RT RADIAL; SOURCE, BLOOD GAS ARTERIAL; TEMPERATURE, FAHRENHEIT, BG 95.6 FAHREN (96.0-98.6)
[2022-08-26 12:52] LABS: ABG A-A DIFF O2 252.1 mmHg (10-20.0); O2 DEVICE,BLOOD GAS VENTILATOR (ROOM AIR); PEEP,BG 5 cm H2O; PRESSURE SUPPORT, BG 8 cm H2O; SPONTANEOUS VT, BG 745 ml; VENT MODE, BG Press. Support Vent. (ROOM AIR)
[2022-08-26 16:00] VITALS: BP 121/68
[2022-08-26] MEDS: DEXTROSE 5%-WATER 1,000 ML IV SCH (16:14)
[2022-08-26 20:00] VITALS: BP 143/72
[2022-08-27] VITALS: BP 124/72
[2022-08-27] MEDS: ALBUTEROL SULFATE 2.5 MG/0.5 ML NEB SOLUTION NEB PRN ×2 (01:11→19:45)
[2022-08-27] MEDS: ACETYLCYSTEINE 10% 100 MG/ML 4 ML NEB SOLUTION NEB SCH ×4 (01:11→19:45)
[2022-08-27] MEDS: FentaNYL CIT 1000MCG/0.9% NACL 100 ML IV PRN ×2 (01:40→12:47)
[2022-08-27 04:00] VITALS: BP 132/73
[2022-08-27 06:15] LABS: BASOPHILS % (AUTO) 0.5 % (0.0-2.0); EOSINOPHILS % (AUTO) 1.8 % (1.0-6.0); HEMATOCRIT 24.7 % (41-53); HEMOGLOBIN 8.1 g/dL (13.5-17.5); LYMPHOCYTES # (AUTO) 0.8 K/uL (1.0-4.8); LYMPHOCYTES % (AUTO) 6.3 % (22.0-44.0); MEAN CORPUSCULAR HEMOGLOBIN 29.1 pg (26.0-34.0); MEAN CORPUSCULAR VOLUME 88 fL (80-100); MONOCYTES # (AUTO) 0.7 K/uL (0.1-1.0); MONOCYTES % (AUTO) 5.4 % (2.0-9.0); PLATELET COUNT (AUTO) 349 K/uL (150-450); RED CELL DISTRIBUTION WIDTH 15.4 % (11.5-14.5)
[2022-08-27 06:29] LABS: CALCIUM, TOTAL 8.6 mg/dL (8.8-10.5); CREATININE 1.76 mg/dL (0.60-1.30); MAGNESIUM 1.9 mg/dL (1.80-2.40); PHOSPHORUS 3.8 mg/dL (2.5-4.9); POTASSIUM 3.7 mmol/L (3.5-5.1)
[2022-08-27 08:00] VITALS: BP 132/78
[2022-08-27] MEDS: AMIODARONE HCL 200 MG TABLET PO SCH ×2 (08:10→22:25)
[2022-08-27] MEDS: MetroNIDAZOLE 500 MG TABLET PO SCH ×2 (08:10→17:04)
[2022-08-27] MEDS: PANTOPRAZOLE SODIUM 40 MG/VIAL IVP SCH (08:10)
[2022-08-27 12:00] VITALS: BP 138/77
[2022-08-27] MEDS: CefTRIAXone SODIUM 2 GM in DEXTROSE 5%-WATER 50 ML IV SCH (12:42)
[2022-08-27 16:00] VITALS: BP 132/78
[2022-08-27] MEDS: DEXTROSE 5%-WATER 1,000 ML IV SCH (17:04)
[2022-08-27] MEDS: IPRATROPIUM BROMIDE 0.5 MG/2.5 ML NEB SOLUTION NEB PRN (19:45)
[2022-08-27 20:00] VITALS: BP 151/78
[2022-08-28] VITALS: BP 144/73
[2022-08-28 01:06] LABS: GLUCOSE,POINT OF CARE 108 MG/DL (70-110)
[2022-08-28] MEDS: FentaNYL CIT 1000MCG/0.9% NACL 100 ML IV PRN ×3 (01:08→21:37)
[2022-08-28] MEDS: MetroNIDAZOLE 500 MG TABLET PO SCH ×2 (01:08→08:38)
[2022-08-28] MEDS: ALBUTEROL SULFATE 2.5 MG/0.5 ML NEB SOLUTION NEB PRN ×4 (01:53→20:06)
[2022-08-28] MEDS: ACETYLCYSTEINE 10% 100 MG/ML 4 ML NEB SOLUTION NEB SCH ×4 (01:53→20:06)
[2022-08-28 04:00] VITALS: BP 155/89
[2022-08-28] MEDS: IPRATROPIUM BROMIDE 0.5 MG/2.5 ML NEB SOLUTION NEB PRN ×2 (07:39→13:12)
[2022-08-28 08:00] VITALS: BP 158/71
[2022-08-28] MEDS: PANTOPRAZOLE SODIUM 40 MG/VIAL IVP SCH (08:38)
[2022-08-28] MEDS: AMIODARONE HCL 200 MG TABLET PO SCH ×2 (08:38→22:52)
[2022-08-28 09:43] LABS: BASOPHILS % (AUTO) 0.6 % (0.0-2.0); HEMATOCRIT 25.7 % (41-53); HEMOGLOBIN 8.5 g/dL (13.5-17.5); LYMPHOCYTES % (AUTO) 9.6 % (22.0-44.0); MEAN CORPUSCULAR HEMOGLOBIN 29.5 pg (26.0-34.0); MEAN CORPUSCULAR HGB CONC 33.2 G/dL (31.0-37.0); MEAN CORPUSCULAR VOLUME 89 fL (80-100); MONOCYTES # (AUTO) 0.9 K/uL (0.1-1.0); MONOCYTES % (AUTO) 8.4 % (2.0-9.0); NEUTROPHILS # (AUTO) 8.3 K/uL (1.8-7.7); NEUTROPHILS % (AUTO) 78.4 % (40.0-70.0); PLATELET COUNT (AUTO) 424 K/uL (150-450); RED BLOOD CELL COUNT(AUTO) 2.89 MIL/uL (4.50-5.90); RED CELL DISTRIBUTION WIDTH 15.8 % (11.5-14.5)
[2022-08-28 10:04] LABS: CALCIUM, TOTAL 8.7 mg/dL (8.8-10.5); CREATININE 1.83 mg/dL (0.60-1.30); POTASSIUM 3.8 mmol/L (3.5-5.1)
[2022-08-28 10:07] LABS: MAGNESIUM 1.9 mg/dL (1.80-2.40); PHOSPHORUS 3.9 mg/dL (2.5-4.9)
[2022-08-28 11:10] LABS: GLUCOSE,POINT OF CARE 93 MG/DL (70-110)
[2022-08-28] MEDS: CefTRIAXone SODIUM 2 GM in DEXTROSE 5%-WATER 50 ML IV SCH (11:45)
[2022-08-28 12:00] VITALS: BP 136/68
[2022-08-28 13:46] LABS: INR 1.5 (0.9-1.1); PROTHROMBIN TIME 15.5 SEC (9.4-11.6)
[2022-08-28 16:00] VITALS: BP 150/86
[2022-08-28] MEDS: ACETAMINOPHEN 325 MG TABLET PO PRN (18:22)
[2022-08-28] MEDS: DEXTROSE 5%-WATER 1,000 ML IV SCH (18:22)
[2022-08-28 20:00] VITALS: BP 146/77
[2022-08-29] VITALS: BP 132/66
[2022-08-29] MEDS: ALBUTEROL SULFATE 2.5 MG/0.5 ML NEB SOLUTION NEB PRN ×4 (01:38→19:39)
[2022-08-29] MEDS: ACETYLCYSTEINE 10% 100 MG/ML 4 ML NEB SOLUTION NEB SCH ×4 (01:38→19:39)
[2022-08-29 04:00] VITALS: BP 159/75
[2022-08-29 06:00] LABS: BASOPHILS % (AUTO) 0.8 % (0.0-2.0); EOSINOPHILS % (AUTO) 1.8 % (1.0-6.0); HEMATOCRIT 25.9 % (41-53); HEMOGLOBIN 8.7 g/dL (13.5-17.5); LYMPHOCYTES # (AUTO) 1.1 K/uL (1.0-4.8); LYMPHOCYTES % (AUTO) 10.6 % (22.0-44.0); MEAN CORPUSCULAR HEMOGLOBIN 29.9 pg (26.0-34.0); MEAN CORPUSCULAR HGB CONC 33.7 G/dL (31.0-37.0); MEAN CORPUSCULAR VOLUME 89 fL (80-100); MONOCYTES % (AUTO) 9.3 % (2.0-9.0); NEUTROPHILS # (AUTO) 8.1 K/uL (1.8-7.7); NEUTROPHILS % (AUTO) 77.5 % (40.0-70.0); PLATELET COUNT (AUTO) 411 K/uL (150-450); RED BLOOD CELL COUNT(AUTO) 2.92 MIL/uL (4.50-5.90); RED CELL DISTRIBUTION WIDTH 15.8 % (11.5-14.5)
[2022-08-29 06:16] LABS: ALBUMIN 1.9 g/dL (3.4-5.0); BILIRUBIN,TOTAL 0.3 mg/dL (0.1-1.0); CALCIUM, TOTAL 8.8 mg/dL (8.8-10.5); CREATININE 1.88 mg/dL (0.60-1.30); PHOSPHORUS 4.2 mg/dL (2.5-4.9); POTASSIUM 4.3 mmol/L (3.5-5.1); TOTAL PROTEIN, SERUM 6.7 g/dL (6.4-8.2)
[2022-08-29] MEDS: IPRATROPIUM BROMIDE 0.5 MG/2.5 ML NEB SOLUTION NEB PRN ×2 (07:58→13:31)
[2022-08-29 08:00] VITALS: BP 126/64
[2022-08-29] MEDS: AMIODARONE HCL 200 MG TABLET PO SCH ×2 (09:06→21:18)
[2022-08-29] MEDS: PANTOPRAZOLE SODIUM 40 MG/VIAL IVP SCH (09:08)
[2022-08-29] MEDS: FentaNYL CIT 1000MCG/0.9% NACL 100 ML IV PRN ×3 (09:13→20:54)
[2022-08-29] MEDS ORDERED: ROCURONIUM BROMIDE 10 MG/ML 5 ML VIAL IVP ONE (10:00)
[2022-08-29 12:00] VITALS: BP 182/93
[2022-08-29] MEDS: CefTRIAXone SODIUM 2 GM in DEXTROSE 5%-WATER 50 ML IV SCH (12:26)
[2022-08-29 16:00] VITALS: BP 155/68
[2022-08-29] MEDS: DEXTROSE 5%-WATER 1,000 ML IV SCH (17:31)
[2022-08-29 20:00] VITALS: BP 143/81
[2022-08-29] MEDS: PROPOFOL 1000 MG/ISO-OSM 100 ML IV PRN (21:10)
[2022-08-30] VITALS: BP 161/72
[2022-08-30] MEDS: FentaNYL CIT 1000MCG/0.9% NACL 100 ML IV PRN ×5 (01:58→23:52)
[2022-08-30] MEDS: ALBUTEROL SULFATE 2.5 MG/0.5 ML NEB SOLUTION NEB PRN ×4 (02:08→19:52)
[2022-08-30] MEDS: ACETYLCYSTEINE 10% 100 MG/ML 4 ML NEB SOLUTION NEB SCH ×4 (02:09→19:52)
[2022-08-30 04:00] VITALS: BP 177/66
[2022-08-30 06:04] LABS: CALCIUM, TOTAL 8.9 mg/dL (8.8-10.5); CREATININE 1.81 mg/dL (0.60-1.30); POTASSIUM 3.9 mmol/L (3.5-5.1)
[2022-08-30 06:05] LABS: BASOPHILS % (AUTO) 0.7 % (0.0-2.0); EOSINOPHILS % (AUTO) 1.5 % (1.0-6.0); HEMATOCRIT 25.3 % (41-53); HEMOGLOBIN 8.3 g/dL (13.5-17.5); LYMPHOCYTES # (AUTO) 1.1 K/uL (1.0-4.8); MEAN CORPUSCULAR HEMOGLOBIN 29.1 pg (26.0-34.0); MEAN CORPUSCULAR HGB CONC 32.9 G/dL (31.0-37.0); MEAN CORPUSCULAR VOLUME 89 fL (80-100); MONOCYTES # (AUTO) 0.9 K/uL (0.1-1.0); MONOCYTES % (AUTO) 10.1 % (2.0-9.0); NEUTROPHILS % (AUTO) 75.7 % (40.0-70.0); PLATELET COUNT (AUTO) 405 K/uL (150-450); RED BLOOD CELL COUNT(AUTO) 2.86 MIL/uL (4.50-5.90); RED CELL DISTRIBUTION WIDTH 15.9 % (11.5-14.5)
[2022-08-30 08:00] VITALS: BP 136/71
[2022-08-30] MEDS: IPRATROPIUM BROMIDE 0.5 MG/2.5 ML NEB SOLUTION NEB PRN ×2 (08:18→13:41)
[2022-08-30] MEDS: PANTOPRAZOLE SODIUM 40 MG/VIAL IVP SCH (09:02)
[2022-08-30] MEDS: AMIODARONE HCL 200 MG TABLET PO SCH ×2 (09:02→20:43)
[2022-08-30] MEDS: PROPOFOL 1000 MG/ISO-OSM 100 ML IV PRN ×3 (09:10→23:57)
[2022-08-30 12:00] VITALS: BP 144/61
[2022-08-30 16:00] VITALS: BP 130/64
[2022-08-30] MEDS: DEXTROSE 5%-WATER 1,000 ML IV SCH (17:23)
[2022-08-30 20:00] VITALS: BP 156/79
[2022-08-31] VITALS: BP 127/67
[2022-08-31] MEDS: ALBUTEROL SULFATE 2.5 MG/0.5 ML NEB SOLUTION NEB PRN ×4 (01:42→20:22)
[2022-08-31] MEDS: ACETYLCYSTEINE 10% 100 MG/ML 4 ML NEB SOLUTION NEB SCH ×4 (01:42→20:23)
[2022-08-31 04:00] VITALS: BP 115/58
[2022-08-31] MEDS: FentaNYL CIT 1000MCG/0.9% NACL 100 ML IV PRN ×2 (04:28→13:02)
[2022-08-31] MEDS: PROPOFOL 1000 MG/ISO-OSM 100 ML IV PRN (05:18)
[2022-08-31 06:20] LABS: BASOPHILS % (AUTO) 0.8 % (0.0-2.0); EOSINOPHILS % (AUTO) 1.4 % (1.0-6.0); HEMATOCRIT 24.7 % (41-53); LYMPHOCYTES # (AUTO) 1.3 K/uL (1.0-4.8); LYMPHOCYTES % (AUTO) 11.6 % (22.0-44.0); MEAN CORPUSCULAR HEMOGLOBIN 29.2 pg (26.0-34.0); MEAN CORPUSCULAR HGB CONC 32.6 G/dL (31.0-37.0); MEAN CORPUSCULAR VOLUME 89 fL (80-100); MONOCYTES # (AUTO) 1.1 K/uL (0.1-1.0); MONOCYTES % (AUTO) 9.9 % (2.0-9.0); NEUTROPHILS # (AUTO) 8.7 K/uL (1.8-7.7); NEUTROPHILS % (AUTO) 76.3 % (40.0-70.0); PLATELET COUNT (AUTO) 392 K/uL (150-450); RED BLOOD CELL COUNT(AUTO) 2.76 MIL/uL (4.50-5.90); RED CELL DISTRIBUTION WIDTH 16.1 % (11.5-14.5)
[2022-08-31 06:50] LABS: CALCIUM, TOTAL 8.7 mg/dL (8.8-10.5); CREATININE 1.95 mg/dL (0.60-1.30); POTASSIUM 4.1 mmol/L (3.5-5.1)
[2022-08-31 08:00] VITALS: BP 111/51
[2022-08-31] MEDS: AMIODARONE HCL 200 MG TABLET PO SCH ×2 (08:53→20:26)
[2022-08-31] MEDS: PANTOPRAZOLE SODIUM 40 MG/VIAL IVP SCH (08:53)
[2022-08-31 12:00] VITALS: BP 128/72
[2022-08-31 16:00] VITALS: BP 147/73
[2022-08-31] MEDS: DEXTROSE 5%-WATER 1,000 ML IV SCH (17:33)
[2022-08-31 17:35] LABS: INR 1.3 (0.9-1.1); PROTHROMBIN TIME 13.5 SEC (9.4-11.6)
[2022-08-31 20:00] VITALS: BP 141/77
[2022-09-01] VITALS: BP 147/78
[2022-09-01] MEDS: ALBUTEROL SULFATE 2.5 MG/0.5 ML NEB SOLUTION NEB PRN ×2 (01:57→20:17)
[2022-09-01] MEDS: ACETYLCYSTEINE 10% 100 MG/ML 4 ML NEB SOLUTION NEB SCH ×4 (01:57→20:17)
[2022-09-01 04:00] VITALS: BP 146/94
[2022-09-01] MEDS: FentaNYL CIT 1000MCG/0.9% NACL 100 ML IV PRN ×2 (06:00→19:00)
[2022-09-01 06:02] LABS: BASOPHILS % (AUTO) 0.6 % (0.0-2.0); EOSINOPHILS % (AUTO) 1.2 % (1.0-6.0); HEMATOCRIT 25.3 % (41-53); HEMOGLOBIN 8.4 g/dL (13.5-17.5); LYMPHOCYTES % (AUTO) 10.2 % (22.0-44.0); MEAN CORPUSCULAR HEMOGLOBIN 29.2 pg (26.0-34.0); MEAN CORPUSCULAR HGB CONC 33.3 G/dL (31.0-37.0); MEAN CORPUSCULAR VOLUME 88 fL (80-100); MONOCYTES # (AUTO) 0.7 K/uL (0.1-1.0); MONOCYTES % (AUTO) 7.5 % (2.0-9.0); NEUTROPHILS % (AUTO) 80.5 % (40.0-70.0); PLATELET COUNT (AUTO) 473 K/uL (150-450); RED BLOOD CELL COUNT(AUTO) 2.88 MIL/uL (4.50-5.90); RED CELL DISTRIBUTION WIDTH 16.4 % (11.5-14.5)
[2022-09-01 06:12] LABS: ALBUMIN 1.7 g/dL (3.4-5.0); BILIRUBIN,TOTAL 0.3 mg/dL (0.1-1.0); CALCIUM, TOTAL 8.5 mg/dL (8.8-10.5); CREATININE 1.83 mg/dL (0.60-1.30); POTASSIUM 4.3 mmol/L (3.5-5.1); TOTAL PROTEIN, SERUM 6.5 g/dL (6.4-8.2)
[2022-09-01] MEDS ORDERED: CeFAZolin 1 GM/DEXTROSE 50 ML IV ONE (07:30)
[2022-09-01 08:00] VITALS: BP 156/79
[2022-09-01 08:35] LABS: COVID AG,FIA SOURCE NASAL SWAB
[2022-09-01] MEDS: PANTOPRAZOLE SODIUM 40 MG/VIAL IVP SCH (08:43)
[2022-09-01] MEDS: PROPOFOL 1000 MG/ISO-OSM 100 ML IV PRN ×2 (08:44→17:40)
[2022-09-01] MEDS: AMIODARONE HCL 200 MG TABLET PO SCH ×2 (09:00→20:43)
[2022-09-01 12:00] VITALS: BP 156/85
[2022-09-01 16:00] VITALS: BP 160/85
[2022-09-01] MEDS: DEXTROSE 5%-WATER 1,000 ML IV SCH (17:42)
[2022-09-01 20:00] VITALS: BP 152/77
[2022-09-02] VITALS: BP 158/78
[2022-09-02] MEDS: ACETYLCYSTEINE 10% 100 MG/ML 4 ML NEB SOLUTION NEB SCH ×4 (00:49→19:42)
[2022-09-02] MEDS: ALBUTEROL SULFATE 2.5 MG/0.5 ML NEB SOLUTION NEB PRN ×3 (00:49→13:46)
[2022-09-02 04:00] VITALS: BP 154/78
[2022-09-02] MEDS ORDERED: SODIUM CHLORIDE 0.9% 250 ML IV ONE (04:16)
[2022-09-02] MEDS: PROPOFOL 1000 MG/ISO-OSM 100 ML IV PRN ×2 (04:18→15:03)
[2022-09-02 06:08] LABS: CALCIUM, TOTAL 8.9 mg/dL (8.8-10.5); CREATININE 2.03 mg/dL (0.60-1.30); POTASSIUM 4.2 mmol/L (3.5-5.1)
[2022-09-02 06:41] LABS: BASOPHILS % (AUTO) 0.6 % (0.0-2.0); HEMATOCRIT 26.7 % (41-53); HEMOGLOBIN 8.7 g/dL (13.5-17.5); LYMPHOCYTES # (AUTO) 0.7 K/uL (1.0-4.8); MEAN CORPUSCULAR HEMOGLOBIN 28.9 pg (26.0-34.0); MEAN CORPUSCULAR HGB CONC 32.7 G/dL (31.0-37.0); MEAN CORPUSCULAR VOLUME 88 fL (80-100); MONOCYTES # (AUTO) 0.7 K/uL (0.1-1.0); MONOCYTES % (AUTO) 6.2 % (2.0-9.0); PLATELET COUNT (AUTO) 526 K/uL (150-450); RED BLOOD CELL COUNT(AUTO) 3.02 MIL/uL (4.50-5.90)
[2022-09-02 06:45] LABS: NEUTROPHILS % (AUTO) 86.2 % (40.0-70.0)
[2022-09-02] MEDS: IPRATROPIUM BROMIDE 0.5 MG/2.5 ML NEB SOLUTION NEB PRN ×3 (07:20→19:41)
[2022-09-02 08:00] VITALS: BP 139/71
[2022-09-02] MEDS: AMIODARONE HCL 200 MG TABLET PO SCH ×2 (08:22→20:19)
[2022-09-02] MEDS: PANTOPRAZOLE SODIUM 40 MG/VIAL IVP SCH (08:22)
[2022-09-02] MEDS: SODIUM CHLORIDE 0.45% 1,000 ML IV SCH (10:17)
[2022-09-02 12:00] VITALS: BP 166/86
[2022-09-02] MEDS: METOPROLOL TARTRATE 25 MG TABLET PO SCH ×2 (15:00→20:18)
[2022-09-02] MEDS: FentaNYL CIT 1000MCG/0.9% NACL 100 ML IV PRN (15:01)
[2022-09-02 16:00] VITALS: BP 115/75
[2022-09-02] MEDS ORDERED: DEXMEDETOMIDINE HCL 400 MCG in SODIUM CHLORIDE 0.9% 96 ML IV PRN (19:15)
[2022-09-02 20:00] VITALS: BP 164/82
[2022-09-02] MEDS: HydrALAZINE HCL 20 MG/ML VIAL IVP PRN (23:06)
[2022-09-03] VITALS: BP 157/77
[2022-09-03] MEDS: SODIUM CHLORIDE 0.45% 1,000 ML IV SCH ×2 (00:02→14:38)
[2022-09-03] MEDS: ALBUTEROL SULFATE 2.5 MG/0.5 ML NEB SOLUTION NEB PRN ×4 (02:11→19:18)
[2022-09-03] MEDS: ACETYLCYSTEINE 10% 100 MG/ML 4 ML NEB SOLUTION NEB SCH ×4 (02:11→19:19)
[2022-09-03] MEDS: IPRATROPIUM BROMIDE 0.5 MG/2.5 ML NEB SOLUTION NEB PRN ×4 (02:11→19:18)
[2022-09-03 04:00] VITALS: BP 121/71
[2022-09-03] MEDS: PROPOFOL 1000 MG/ISO-OSM 100 ML IV PRN (04:44)
[2022-09-03 06:08] LABS: CHOL/HDL RATIO 3.4 (4.2-7.3)
[2022-09-03 08:00] VITALS: BP 168/96
[2022-09-03] MEDS: PANTOPRAZOLE SODIUM 40 MG/VIAL IVP SCH (08:32)
[2022-09-03] MEDS: METOPROLOL TARTRATE 25 MG TABLET PO SCH ×2 (08:33→21:49)
[2022-09-03] MEDS: AMIODARONE HCL 200 MG TABLET PO SCH ×2 (08:33→21:49)
[2022-09-03] MEDS: ACETAMINOPHEN 325 MG TABLET PO PRN (08:33)
[2022-09-03] MEDS: HydrALAZINE HCL 20 MG/ML VIAL IVP PRN (08:34)
[2022-09-03 12:00] VITALS: BP 97/60
[2022-09-03] MEDS: MORPHINE SULFATE 2 MG/ML SYRINGE IVP PRN (12:27)
[2022-09-03] MEDS ORDERED: LORazepam 2 MG/ML VIAL IVP PRN (13:30)
[2022-09-03] MEDS: BALSAM PERU/CASTOR OIL 60 GM OINTMENT TP SCH ×2 (14:38→21:50)
[2022-09-03 15:32] LABS: ABG CARBOXYHEMOGLOBIN 0.6 % (0.0-1.5); ABG HCO3 18.8 mmol/L (22.0-26.0); ABG METHEMOGLOBIN 0.3 % (0.0-1.5); ABG OXYGEN SATURATION 96.1 % (95.0-98.0); ABG OXYHEMOGLOBIN 95.2 % (94.0-100.0); ABG PCO2 24 mmHg (35-45); ABG PH 7.439 (7.35-7.450); ABG TOTAL HEMOGLOBIN 8.9 G/dL (12.0-18.0); PO2, ARTERIAL BG 77.9 mmHg (79.0-87.0); SOURCE, BLOOD GAS ARTERIAL; TEMPERATURE, FAHRENHEIT, BG 98.6 FAHREN (96.0-98.6)
[2022-09-03 15:34] LABS: ABG A-A DIFF O2 143.3 mmHg (10-20.0); O2 DEVICE,BLOOD GAS VENTILATOR (ROOM AIR); PEEP,BG 5 cm H2O; PRESSURE SUPPORT, BG 14 cm H2O; SITE, BLOOD GAS RT RADIAL; SPONTANEOUS VT, BG 500 ml; VENT MODE, BG SIMV (ROOM AIR); VT, ABG 450 ml
[2022-09-03 16:00] VITALS: BP 99/55
[2022-09-03 20:00] VITALS: BP 133/86
[2022-09-03] MEDS: APIXABAN 5 MG TABLET PO SCH (21:50)
[2022-09-03] MEDS ORDERED: SODIUM CHLORIDE 0.9% 250 ML IV ONE (22:41)
[2022-09-04] VITALS (7 sets, daily range): BP systolic 104–131; BP diastolic 61–80
[2022-09-04] MEDS: ALBUTEROL SULFATE 2.5 MG/0.5 ML NEB SOLUTION NEB PRN ×4 (01:59→19:50)
[2022-09-04] MEDS: IPRATROPIUM BROMIDE 0.5 MG/2.5 ML NEB SOLUTION NEB PRN ×3 (01:59→15:19)
[2022-09-04] MEDS: ACETYLCYSTEINE 10% 100 MG/ML 4 ML NEB SOLUTION NEB SCH ×4 (01:59→19:50)
[2022-09-04] MEDS: MORPHINE SULFATE 2 MG/ML SYRINGE IVP PRN (03:16)
[2022-09-04] MEDS: ACETAMINOPHEN 325 MG TABLET PO PRN ×3 (04:16→19:30)
[2022-09-04] MEDS: SODIUM CHLORIDE 0.45% 1,000 ML IV SCH ×2 (04:59→19:30)
[2022-09-04 06:11] LABS: BASOPHILS % (AUTO) 0.5 % (0.0-2.0); EOSINOPHILS % (AUTO) 0.8 % (1.0-6.0); HEMATOCRIT 23.6 % (41-53); HEMOGLOBIN 7.9 g/dL (13.5-17.5); LYMPHOCYTES # (AUTO) 0.8 K/uL (1.0-4.8); LYMPHOCYTES % (AUTO) 7.8 % (22.0-44.0); MEAN CORPUSCULAR HGB CONC 33.4 G/dL (31.0-37.0); MEAN CORPUSCULAR VOLUME 87 fL (80-100); MONOCYTES # (AUTO) 0.7 K/uL (0.1-1.0); MONOCYTES % (AUTO) 6.7 % (2.0-9.0); NEUTROPHILS # (AUTO) 8.6 K/uL (1.8-7.7); NEUTROPHILS % (AUTO) 84.2 % (40.0-70.0); PLATELET COUNT (AUTO) 584 K/uL (150-450); RED BLOOD CELL COUNT(AUTO) 2.71 MIL/uL (4.50-5.90); RED CELL DISTRIBUTION WIDTH 16.2 % (11.5-14.5)
[2022-09-04 06:26] LABS: ALBUMIN 1.7 g/dL (3.4-5.0); BILIRUBIN,TOTAL 0.2 mg/dL (0.1-1.0); CALCIUM, TOTAL 8.3 mg/dL (8.8-10.5); CREATININE 3.19 mg/dL (0.60-1.30); POTASSIUM 4.1 mmol/L (3.5-5.1); TOTAL PROTEIN, SERUM 6.6 g/dL (6.4-8.2)
[2022-09-04] MEDS: AMIODARONE HCL 200 MG TABLET PO SCH ×2 (07:58→21:46)
[2022-09-04] MEDS: METOPROLOL TARTRATE 25 MG TABLET PO SCH ×2 (07:58→20:37)
[2022-09-04] MEDS: BALSAM PERU/CASTOR OIL 60 GM OINTMENT TP SCH ×2 (07:58→21:44)
[2022-09-04] MEDS: PANTOPRAZOLE SODIUM 40 MG/VIAL IVP SCH (07:58)
[2022-09-04] MEDS: APIXABAN 5 MG TABLET PO SCH ×2 (07:58→20:37)
[2022-09-04] MEDS: MULTIVITAMINS, THERAPEUTIC 15 ML UDCUP GT SCH (07:58)
[2022-09-04 14:02] LABS: MAGNESIUM 2.1 mg/dL (1.80-2.40); PHOSPHORUS 5.4 mg/dL (2.5-4.9)
[2022-09-04 17:49] LABS: CALCIUM, TOTAL 8.4 mg/dL (8.8-10.5); CREATININE 2.59 mg/dL (0.60-1.30); PHOSPHORUS 4.2 mg/dL (2.5-4.9); POTASSIUM 3.8 mmol/L (3.5-5.1)
[2022-09-05] VITALS: BP 135/83
[2022-09-05] LABS: APPEARANCE,URINE HAZY (CLEAR); BILIRUBIN,URINE NEGATIVE (NEGATIVE); GLUCOSE, URINE (UA) NEGATIVE (NEGATIVE); KETONES,URINE NEGATIVE (NEGATIVE); LEUKOCYTE ESTERASE ,URINE MODERATE (NEGATIVE); NITRATE,URINE NEGATIVE (NEGATIVE); OCCULT BLOOD,URINE LARGE (NEGATIVE); PROTEIN,URINE 30-70 mg/dL (NEGATIVE); SPECIFIC GRAVITIY, URINE 1.011 (1.003-1.030); UROBILINOGEN,URINE <=1.0 mg/dL (<=1.0)
[2022-09-05 00:15] LABS: BACTERIA,URINE Few /HPF (None Seen); COARSE GRANULAR CASTS,URINE 0-2 /LPF (None Seen); SQUAMOUS EPITHELIAL CELL,UR None Seen /LPF (None Seen)
[2022-09-05] MEDS: ACETYLCYSTEINE 10% 100 MG/ML 4 ML NEB SOLUTION NEB SCH ×4 (02:06→20:16)
[2022-09-05] MEDS: ALBUTEROL SULFATE 2.5 MG/0.5 ML NEB SOLUTION NEB PRN ×4 (02:06→20:16)
[2022-09-05 04:00] VITALS: BP 110/63
[2022-09-05 06:47] LABS: HEMATOCRIT 23.2 % (41-53); HEMOGLOBIN 7.9 g/dL (13.5-17.5); LYMPHOCYTES # (AUTO) 1.2 K/uL (1.0-4.8); MEAN CORPUSCULAR HEMOGLOBIN 29.7 pg (26.0-34.0); MEAN CORPUSCULAR VOLUME 87 fL (80-100); MONOCYTES # (AUTO) 0.8 K/uL (0.1-1.0); MONOCYTES % (AUTO) 9.4 % (2.0-9.0); NEUTROPHILS # (AUTO) 6.8 K/uL (1.8-7.7); NEUTROPHILS % (AUTO) 75.6 % (40.0-70.0); PLATELET COUNT (AUTO) 533 K/uL (150-450); RED BLOOD CELL COUNT(AUTO) 2.65 MIL/uL (4.50-5.90); RED CELL DISTRIBUTION WIDTH 15.9 % (11.5-14.5)
[2022-09-05 07:11] LABS: CALCIUM, TOTAL 8.4 mg/dL (8.8-10.5); CREATININE 2.07 mg/dL (0.60-1.30); POTASSIUM 4.1 mmol/L (3.5-5.1)
[2022-09-05 08:00] VITALS: BP 141/78
[2022-09-05] MEDS: MULTIVITAMINS, THERAPEUTIC 15 ML UDCUP GT SCH (09:29)
[2022-09-05] MEDS: APIXABAN 5 MG TABLET PO SCH ×2 (09:29→20:53)
[2022-09-05] MEDS: PANTOPRAZOLE SODIUM 40 MG/VIAL IVP SCH (09:29)
[2022-09-05] MEDS: METOPROLOL TARTRATE 25 MG TABLET PO SCH ×2 (09:30→20:53)
[2022-09-05] MEDS: BALSAM PERU/CASTOR OIL 60 GM OINTMENT TP SCH ×2 (09:30→20:54)
[2022-09-05] MEDS: AMIODARONE HCL 200 MG TABLET PO SCH ×2 (11:20→20:53)
[2022-09-05] MEDS: SODIUM CHLORIDE 0.45% 1,000 ML IV SCH (11:21)
[2022-09-05 12:00] VITALS: BP 116/62
[2022-09-05] MEDS: ACETAMINOPHEN 325 MG TABLET PO PRN (13:33)
[2022-09-05 16:02] VITALS: BP 133/84
[2022-09-05] MEDS: PIPERACILLIN/TAZO 3.375 GM/D5W 50 ML IV SCH ×2 (16:41→23:41)
[2022-09-05 20:00] VITALS: BP 131/80
[2022-09-06] VITALS: BP 139/83
[2022-09-06] MEDS: SODIUM CHLORIDE 0.45% 1,000 ML IV SCH ×2 (00:40→15:01)
[2022-09-06] MEDS ORDERED: 0.9% SODIUM CHLORIDE 5 ML NEB SOLUTION NEB ONE (01:22)
[2022-09-06] MEDS: ALBUTEROL SULFATE 2.5 MG/0.5 ML NEB SOLUTION NEB PRN ×4 (01:24→19:10)
[2022-09-06] MEDS: ACETYLCYSTEINE 20% 200 MG/ML 4 ML NEB SOLUTION NEB SCH ×4 (02:00→19:09)
[2022-09-06 04:00] VITALS: BP 130/80
[2022-09-06] MEDS: PIPERACILLIN/TAZO 3.375 GM/D5W 50 ML IV SCH ×4 (07:08→21:31)
[2022-09-06 08:00] VITALS: BP 130/71
[2022-09-06] MEDS: IPRATROPIUM BROMIDE 0.5 MG/2.5 ML NEB SOLUTION NEB PRN ×3 (08:17→19:10)
[2022-09-06] MEDS: METOPROLOL TARTRATE 25 MG TABLET PO SCH ×2 (09:08→20:20)
[2022-09-06] MEDS: BALSAM PERU/CASTOR OIL 60 GM OINTMENT TP SCH ×2 (09:09→20:20)
[2022-09-06] MEDS: AMIODARONE HCL 200 MG TABLET PO SCH ×2 (09:09→20:20)
[2022-09-06] MEDS: PANTOPRAZOLE SODIUM 40 MG/VIAL IVP SCH (09:09)
[2022-09-06] MEDS: MULTIVITAMINS, THERAPEUTIC 15 ML UDCUP GT SCH (09:09)
[2022-09-06] MEDS: APIXABAN 5 MG TABLET PO SCH ×2 (09:09→20:20)
[2022-09-06 12:00] VITALS: BP 107/58
[2022-09-06 16:00] VITALS: BP 98/60
[2022-09-06 20:00] VITALS: BP 118/75
[2022-09-06 21:06] LABS: GLUCOSE,POINT OF CARE 87 MG/DL (70-110)
[2022-09-07] VITALS: BP 114/65
[2022-09-07] MEDS: IPRATROPIUM BROMIDE 0.5 MG/2.5 ML NEB SOLUTION NEB PRN ×4 (01:01→19:01)
[2022-09-07] MEDS: ACETYLCYSTEINE 20% 200 MG/ML 4 ML NEB SOLUTION NEB SCH ×4 (01:01→19:01)
[2022-09-07] MEDS: ALBUTEROL SULFATE 2.5 MG/0.5 ML NEB SOLUTION NEB PRN ×3 (01:01→19:01)
[2022-09-07 04:00] VITALS: BP 135/81
[2022-09-07] MEDS: PIPERACILLIN/TAZO 3.375 GM/D5W 50 ML IV SCH ×4 (04:30→23:15)
[2022-09-07 06:14] LABS: BASOPHILS % (AUTO) 1.2 % (0.0-2.0); EOSINOPHILS % (AUTO) 1.1 % (1.0-6.0); HEMATOCRIT 22.4 % (41-53); HEMOGLOBIN 7.4 g/dL (13.5-17.5); LYMPHOCYTES % (AUTO) 11.1 % (22.0-44.0); MEAN CORPUSCULAR HEMOGLOBIN 28.6 pg (26.0-34.0); MEAN CORPUSCULAR HGB CONC 33.1 G/dL (31.0-37.0); MEAN CORPUSCULAR VOLUME 87 fL (80-100); MONOCYTES # (AUTO) 0.7 K/uL (0.1-1.0); MONOCYTES % (AUTO) 7.4 % (2.0-9.0); NEUTROPHILS # (AUTO) 7.5 K/uL (1.8-7.7); NEUTROPHILS % (AUTO) 79.2 % (40.0-70.0); PLATELET COUNT (AUTO) 583 K/uL (150-450); RED BLOOD CELL COUNT(AUTO) 2.59 MIL/uL (4.50-5.90); RED CELL DISTRIBUTION WIDTH 15.7 % (11.5-14.5)
[2022-09-07 06:32] LABS: ALBUMIN 1.6 g/dL (3.4-5.0); BILIRUBIN,TOTAL 0.3 mg/dL (0.1-1.0); CALCIUM, TOTAL 8.5 mg/dL (8.8-10.5); CREATININE 1.57 mg/dL (0.60-1.30); MAGNESIUM 1.5 mg/dL (1.80-2.40); PHOSPHORUS 3.5 mg/dL (2.5-4.9); POTASSIUM 3.9 mmol/L (3.5-5.1); TOTAL PROTEIN, SERUM 6.5 g/dL (6.4-8.2)
[2022-09-07 08:00] VITALS: BP 132/75
[2022-09-07] MEDS: MULTIVITAMINS, THERAPEUTIC 15 ML UDCUP GT SCH (08:16)
[2022-09-07] MEDS: SODIUM CHLORIDE 0.45% 1,000 ML IV SCH ×2 (08:17→19:08)
[2022-09-07] MEDS: PANTOPRAZOLE SODIUM 40 MG/VIAL IVP SCH (08:17)
[2022-09-07] MEDS: APIXABAN 5 MG TABLET PO SCH ×2 (08:18→20:35)
[2022-09-07] MEDS: AMIODARONE HCL 200 MG TABLET PO SCH ×2 (08:19→20:35)
[2022-09-07] MEDS: METOPROLOL TARTRATE 25 MG TABLET PO SCH ×2 (08:19→20:35)
[2022-09-07] MEDS: BALSAM PERU/CASTOR OIL 60 GM OINTMENT TP SCH ×2 (08:19→20:36)
[2022-09-07] MEDS: METOCLOPRAMIDE HCL 5 MG/ML 2 ML VIAL IVP SCH ×2 (11:48→19:04)
[2022-09-07 12:00] VITALS: BP 131/82
[2022-09-07] MEDS ORDERED: MAGNESIUM SULFATE 2 GM/WATER 50 ML IV ONE (12:45)
[2022-09-07] MEDS ORDERED: SODIUM CHLORIDE 0.9% 250 ML IV ONE (13:14)
[2022-09-07 16:00] VITALS: BP 126/77
[2022-09-07 20:00] VITALS: BP 105/65
[2022-09-08] VITALS (8 sets, daily range): BP systolic 115–133; BP diastolic 69–86
[2022-09-08] MEDS: IPRATROPIUM BROMIDE 0.5 MG/2.5 ML NEB SOLUTION NEB PRN ×2 (01:06→19:11)
[2022-09-08] MEDS: ACETYLCYSTEINE 20% 200 MG/ML 4 ML NEB SOLUTION NEB SCH ×4 (01:06→19:11)
[2022-09-08] MEDS: ALBUTEROL SULFATE 2.5 MG/0.5 ML NEB SOLUTION NEB PRN ×4 (01:06→19:11)
[2022-09-08] MEDS: METOCLOPRAMIDE HCL 5 MG/ML 2 ML VIAL IVP SCH ×4 (03:31→17:11)
[2022-09-08] MEDS: PIPERACILLIN/TAZO 3.375 GM/D5W 50 ML IV SCH ×4 (03:33→23:05)
[2022-09-08 05:56] LABS: BASOPHILS % (AUTO) 0.8 % (0.0-2.0); EOSINOPHILS % (AUTO) 1.5 % (1.0-6.0); HEMATOCRIT 21.4 % (41-53); HEMOGLOBIN 7.1 g/dL (13.5-17.5); LYMPHOCYTES % (AUTO) 11.3 % (22.0-44.0); MEAN CORPUSCULAR HEMOGLOBIN 28.5 pg (26.0-34.0); MEAN CORPUSCULAR VOLUME 86 fL (80-100); MONOCYTES # (AUTO) 0.7 K/uL (0.1-1.0); MONOCYTES % (AUTO) 7.5 % (2.0-9.0); NEUTROPHILS # (AUTO) 7.3 K/uL (1.8-7.7); NEUTROPHILS % (AUTO) 78.9 % (40.0-70.0); PLATELET COUNT (AUTO) 602 K/uL (150-450); RED BLOOD CELL COUNT(AUTO) 2.48 MIL/uL (4.50-5.90); RED CELL DISTRIBUTION WIDTH 15.8 % (11.5-14.5)
[2022-09-08 06:00] LABS: PHOSPHORUS 3.2 mg/dL (2.5-4.9)
[2022-09-08 07:41] LABS: ANION GAP 11 mmol/L (8-16); CALCIUM, TOTAL 8.4 mg/dL (8.8-10.5); CARBON DIOXIDE 24 mmol/L (22-29); CHLORIDE 106 mmol/L (98-107); GLOMERULAR FILTR. RATE CALC > 60 mL/min (>60); GLUCOSE,RANDOM 102 mg/dL (70-110); POTASSIUM 3.5 mmol/L (3.5-5.1); SODIUM SERUM 141 mmol/L (136-145); UREA NITROGEN, BLOOD 19 mg/dL (7-18)
[2022-09-08] MEDS: AMIODARONE HCL 200 MG TABLET PO SCH ×2 (08:18→21:11)
[2022-09-08] MEDS: METOPROLOL TARTRATE 25 MG TABLET PO SCH ×2 (08:18→21:10)
[2022-09-08] MEDS: APIXABAN 5 MG TABLET PO SCH ×2 (08:18→21:10)
[2022-09-08] MEDS: SODIUM CHLORIDE 0.45% 1,000 ML IV SCH ×2 (08:18→23:06)
[2022-09-08] MEDS: MULTIVITAMINS, THERAPEUTIC 15 ML UDCUP GT SCH (08:18)
[2022-09-08] MEDS: PANTOPRAZOLE SODIUM 40 MG/VIAL IVP SCH (08:18)
[2022-09-08] MEDS: BALSAM PERU/CASTOR OIL 60 GM OINTMENT TP SCH ×2 (08:19→21:10)
[2022-09-08] MEDS: ACETAMINOPHEN 325 MG TABLET PO PRN (13:57)
[2022-09-09] VITALS (8 sets, daily range): BP systolic 105–138; BP diastolic 58–80
[2022-09-09] MEDS: METOCLOPRAMIDE HCL 5 MG/ML 2 ML VIAL IVP SCH ×4 (00:15→17:31)
[2022-09-09] MEDS ORDERED: SODIUM CHLORIDE 0.9% 250 ML IV ONE (00:28)
[2022-09-09] MEDS: ACETYLCYSTEINE 20% 200 MG/ML 4 ML NEB SOLUTION NEB SCH ×4 (02:00→20:53)
[2022-09-09] MEDS: ALBUTEROL SULFATE 2.5 MG/0.5 ML NEB SOLUTION NEB PRN ×4 (02:00→20:51)
[2022-09-09] MEDS: PIPERACILLIN/TAZO 3.375 GM/D5W 50 ML IV SCH ×4 (03:50→22:44)
[2022-09-09 05:51] LABS: EOSINOPHILS % (AUTO) 1.6 % (1.0-6.0); HEMATOCRIT 21.7 % (41-53); LYMPHOCYTES # (AUTO) 1.1 K/uL (1.0-4.8); LYMPHOCYTES % (AUTO) 12.7 % (22.0-44.0); MEAN CORPUSCULAR HEMOGLOBIN 28.5 pg (26.0-34.0); MEAN CORPUSCULAR HGB CONC 32.4 G/dL (31.0-37.0); MEAN CORPUSCULAR VOLUME 88 fL (80-100); MONOCYTES # (AUTO) 0.6 K/uL (0.1-1.0); MONOCYTES % (AUTO) 6.6 % (2.0-9.0); NEUTROPHILS # (AUTO) 6.9 K/uL (1.8-7.7); NEUTROPHILS % (AUTO) 78.1 % (40.0-70.0); PLATELET COUNT (AUTO) 589 K/uL (150-450); RED BLOOD CELL COUNT(AUTO) 2.47 MIL/uL (4.50-5.90)
[2022-09-09 05:55] LABS: ANION GAP 9 mmol/L (8-16); CALCIUM, TOTAL 8.5 mg/dL (8.8-10.5); CARBON DIOXIDE 24 mmol/L (22-29); CHLORIDE 109 mmol/L (98-107); GLOMERULAR FILTR. RATE CALC > 60 mL/min (>60); GLUCOSE,RANDOM 109 mg/dL (70-110); PHOSPHORUS 3.4 mg/dL (2.5-4.9); POTASSIUM 3.7 mmol/L (3.5-5.1); SODIUM SERUM 142 mmol/L (136-145); UREA NITROGEN, BLOOD 17 mg/dL (7-18)
[2022-09-09] MEDS: IPRATROPIUM BROMIDE 0.5 MG/2.5 ML NEB SOLUTION NEB PRN ×3 (07:21→20:51)
[2022-09-09] MEDS: PANTOPRAZOLE SODIUM 40 MG/VIAL IVP SCH (09:48)
[2022-09-09] MEDS: APIXABAN 5 MG TABLET PO SCH ×2 (09:49→20:41)
[2022-09-09] MEDS: AMIODARONE HCL 200 MG TABLET PO SCH ×2 (09:49→20:41)
[2022-09-09] MEDS: BALSAM PERU/CASTOR OIL 60 GM OINTMENT TP SCH ×2 (09:49→20:41)
[2022-09-09] MEDS: MULTIVITAMINS, THERAPEUTIC 15 ML UDCUP GT SCH (09:49)
[2022-09-09] MEDS: METOPROLOL TARTRATE 25 MG TABLET PO SCH ×2 (09:50→20:41)
[2022-09-10] VITALS: BP 138/79
[2022-09-10] MEDS: METOCLOPRAMIDE HCL 5 MG/ML 2 ML VIAL IVP SCH ×3 (00:56→12:06)
[2022-09-10] MEDS: ALBUTEROL SULFATE 2.5 MG/0.5 ML NEB SOLUTION NEB PRN ×3 (02:46→15:02)
[2022-09-10] MEDS: ACETYLCYSTEINE 20% 200 MG/ML 4 ML NEB SOLUTION NEB SCH ×3 (02:46→15:02)
[2022-09-10] MEDS: IPRATROPIUM BROMIDE 0.5 MG/2.5 ML NEB SOLUTION NEB PRN ×3 (02:46→15:02)
[2022-09-10] MEDS: PIPERACILLIN/TAZO 3.375 GM/D5W 50 ML IV SCH ×2 (03:50→09:48)
[2022-09-10 04:00] VITALS: BP 122/76
[2022-09-10 06:03] LABS: BASOPHILS % (AUTO) 1.2 % (0.0-2.0); EOSINOPHILS % (AUTO) 2.8 % (1.0-6.0); HEMATOCRIT 21.8 % (41-53); HEMOGLOBIN 7.3 g/dL (13.5-17.5); LYMPHOCYTES # (AUTO) 1.1 K/uL (1.0-4.8); LYMPHOCYTES % (AUTO) 15.4 % (22.0-44.0); MEAN CORPUSCULAR HEMOGLOBIN 28.7 pg (26.0-34.0); MEAN CORPUSCULAR HGB CONC 33.4 G/dL (31.0-37.0); MEAN CORPUSCULAR VOLUME 86 fL (80-100); MONOCYTES # (AUTO) 0.6 K/uL (0.1-1.0); MONOCYTES % (AUTO) 7.8 % (2.0-9.0); NEUTROPHILS # (AUTO) 5.4 K/uL (1.8-7.7); NEUTROPHILS % (AUTO) 72.8 % (40.0-70.0); PLATELET COUNT (AUTO) 566 K/uL (150-450); RED BLOOD CELL COUNT(AUTO) 2.54 MIL/uL (4.50-5.90); RED CELL DISTRIBUTION WIDTH 15.7 % (11.5-14.5)
[2022-09-10 06:12] LABS: MAGNESIUM 1.6 mg/dL (1.80-2.40); PHOSPHORUS 2.8 mg/dL (2.5-4.9)
[2022-09-10 08:00] VITALS: BP 126/80
[2022-09-10] MEDS ORDERED: MAGNESIUM SULFATE 2 GM/WATER 50 ML IV ONE (09:45)
[2022-09-10] MEDS: PANTOPRAZOLE SODIUM 40 MG/VIAL IVP SCH (09:46)
[2022-09-10] MEDS: MULTIVITAMINS, THERAPEUTIC 15 ML UDCUP GT SCH (09:46)
[2022-09-10] MEDS: AMIODARONE HCL 200 MG TABLET PO SCH (09:47)
[2022-09-10] MEDS: APIXABAN 5 MG TABLET PO SCH (09:47)
[2022-09-10] MEDS: METOPROLOL TARTRATE 25 MG TABLET PO SCH (09:47)
[2022-09-10] MEDS: BALSAM PERU/CASTOR OIL 60 GM OINTMENT TP SCH (09:48)
[2022-09-10 12:00] VITALS: BP 130/84
[2022-09-10 15:27] LABS: BASOPHILS % (AUTO) 0.4 % (0.0-2.0); EOSINOPHILS % (AUTO) 2.4 % (1.0-6.0); HEMATOCRIT 26.4 % (41-53); HEMOGLOBIN 8.6 g/dL (13.5-17.5); LYMPHOCYTES # (AUTO) 1.4 K/uL (1.0-4.8); LYMPHOCYTES % (AUTO) 18.3 % (22.0-44.0); MEAN CORPUSCULAR HGB CONC 32.4 G/dL (31.0-37.0); MEAN CORPUSCULAR VOLUME 87 fL (80-100); MONOCYTES # (AUTO) 0.5 K/uL (0.1-1.0); MONOCYTES % (AUTO) 7.1 % (2.0-9.0); NEUTROPHILS # (AUTO) 5.5 K/uL (1.8-7.7); NEUTROPHILS % (AUTO) 71.8 % (40.0-70.0); PLATELET COUNT (AUTO) 639 K/uL (150-450); RED BLOOD CELL COUNT(AUTO) 3.06 MIL/uL (4.50-5.90); RED CELL DISTRIBUTION WIDTH 16.1 % (11.5-14.5)
[2022-09-10 15:56] LABS: PLATELET MORPHOLOGY COMMENT GIANT PLTS PRESENT
[2022-09-10 16:00] VITALS: BP 145/69
== END 2022-09-10 18:24 | DRG 4 ==
LOC: EMS 09:27 → ICUN 18:24 → UNDOADMIN 18:24 → ICU 08-16 15:15
PROVIDERS: ADMIT Hospitalist; ATTEND Hospitalist
PROC: 5A1955Z Respiratory Ventilation, Greater than 96 Consecutive Hours (ICD-10-PCS; principal; 2022-08-15)
PROC: 0BH17EZ Insertion of Endotracheal Airway into Trachea, Via Natural or Artificial Opening (ICD-10-PCS; 2022-08-15)
PROC: 30233L1 Transfusion of Nonautologous Fresh Plasma into Peripheral Vein, Percutaneous Approach (ICD-10-PCS; 2022-08-15)
PROC: 06H03DZ Insertion of Intraluminal Device into Inferior Vena Cava, Percutaneous Approach (ICD-10-PCS; 2022-08-21)
PROC: 0B113F4 Bypass Trachea to Cutaneous with Tracheostomy Device, Percutaneous Approach (ICD-10-PCS; 2022-08-29)
PROC: 0B9J8ZX Drainage of Left Lower Lung Lobe, Via Natural or Artificial Opening Endoscopic, Diagnostic (ICD-10-PCS; 2022-08-29)
PROC: 0B9D8ZX Drainage of Right Middle Lung Lobe, Via Natural or Artificial Opening Endoscopic, Diagnostic (ICD-10-PCS; 2022-08-29)
PROC: 5A1955Z Respiratory Ventilation, Greater than 96 Consecutive Hours (ICD-10-PCS; 2022-08-29)
PROC: 0DH63UZ Insertion of Feeding Device into Stomach, Percutaneous Approach (ICD-10-PCS; 2022-09-01)
DX: A41.9 Sepsis, unspecified organism (principal); J96.00 Acute respiratory failure, unspecified whether with hypoxia or hypercapnia; N17.0 Acute kidney failure with tubular necrosis; I77.71 Dissection of carotid artery; D65 Disseminated intravascular coagulation [defibrination syndrome]; N18.6 End stage renal disease; J18.9 Pneumonia, unspecified organism; J96.01 Acute respiratory failure with hypoxia; D68.9 Coagulation defect, unspecified; I69.354 Hemiplegia and hemiparesis following cerebral infarction affecting left non-dominant side; N39.0 Urinary tract infection, site not specified; D68.32 Hemorrhagic disorder due to extrinsic circulating anticoagulants; E87.0 Hyperosmolality and hypernatremia; I48.19 Other persistent atrial fibrillation; G93.49 Other encephalopathy; J98.11 Atelectasis; I12.0 Hypertensive chronic kidney disease with stage 5 chronic kidney disease or end stage renal disease; Z99.11 Dependence on respirator [ventilator] status; E78.5 Hyperlipidemia, unspecified; I48.0 Paroxysmal atrial fibrillation; I80.02 Phlebitis and thrombophlebitis of superficial vessels of left lower extremity; T50.8X5A Adverse effect of diagnostic agents, initial encounter; T45.515A Adverse effect of anticoagulants, initial encounter; E87.5 Hyperkalemia; I65.29 Occlusion and stenosis of unspecified carotid artery; G93.89 Other specified disorders of brain; E87.6 Hypokalemia; Z20.822 Contact with and (suspected) exposure to COVID-19; K29.70 Gastritis, unspecified, without bleeding; N14.11 Contrast-induced nephropathy; Z95.828 Presence of other vascular implants and grafts; D75.839 Thrombocytosis, unspecified; E83.42 Hypomagnesemia; S90.31XA Contusion of right foot, initial encounter; Z82.49 Family history of ischemic heart disease and other diseases of the circulatory system; Z83.3 Family history of diabetes mellitus; Z79.899 Other long term (current) drug therapy; R79.89 Other specified abnormal findings of blood chemistry; E11.22 Type 2 diabetes mellitus with diabetic chronic kidney disease; R74.8 Abnormal levels of other serum enzymes; R74.01 Elevation of levels of liver transaminase levels; D50.0 Iron deficiency anemia secondary to blood loss (chronic)
CPT/HCPCS: 31622; 31624; 36005; 36245; 36569; 36600; 37619; 70450; 70496; 70498; 71045; 71250; 74018; 76000; 76937; 80048; 80053; 80061; 80307; 81001; 82805; 82948; 82962; 83605; 83735; 84100; 84132; 84145; 84484; 84597; 85014; 85018; 85025; 85362; 85379; 85384; 85598; 85610; 85613; 85730; 85732; 86850; 86900; 86901; 86927; 87015; 87040; 87070; 87081; 87086; 87101; 87186; 87205; 87206; 87220; 87252; 87324; 87449; 87804; 87899; 88112; 93005; 93306; 93970; 93971; 94002; 94003; 94640; 99291; C9113; G0378; J0131; J0282; J0330; J0360; J0610; J0690; J0696; J1644; J1815; J2060; J2250; J2270; J2370; J2405; J2543; J2704; J2765; J3430; J3475; J3480; J3490; J7030; J7050; J7060; P9017; Q9967; 36415-L1; 36415-TC; 85597-TC; J7613; Z7610